=== PATIENT | male | born 1955 | race Caucasian/White ===

== ENCOUNTER 2017-10-16 10:52 | Emergency (ER) | payer MEDICARE ==
[~2017-10-16] VITALS: Ht 175.3 cm; Wt 81.8 kg
[2017-10-16 10:54] VITALS: Ht 175.3 cm; Wt 81.8 kg
[2017-10-16] MEDS ORDERED: LANTUS INSULIN10 ML SC (10:56)
[2017-10-16] MEDS ORDERED: HUMALOG MI100 UNITS/ SC (10:56)
[2017-10-16] MEDS ORDERED: COREG6.25 MG PO (10:57)
[2017-10-16 11:17] LABS: BASOPHILS 0.5 % (0-2); HEMATOCRIT 38.6 % (42.0-54.0); HEMOGLOBIN 13.9 g/dL (13.5-17.5); IMMATURE GRANULOCYTES 0.2 % (0-5); MCH 33.9 pg (26.0-34.0); MCV 94.1 fL (80.0-100.0); MONOCYTES 6.8 % (2-11); NEUTROPHILS 72.5 % (40-80); PLATELET COUNT 174 10x3/uL (130-400); RDW 13.1 % (11.5-14.5); WBC 10.2 10x3/uL (4.8-10.8)
[2017-10-16 11:32] LABS: ALBUMIN 3.6 g/dL (3.4-5.0); ANION GAP 8.7 mmol/L (8-16); BILIRUBIN - TOTAL 0.96 mg/dL (0.2-1.3); CARBON DIOXIDE 31.4 mmol/L (21.0-32.0); CREATININE - SERUM 1.2 mg/dL (0.6-1.3); POTASSIUM - SERUM 4.1 mmol/L (3.5-5.1); PROTEIN - SERUM 8.1 g/dL (6.4-8.2)
[2017-10-16] MEDS ORDERED: BACTRIM DS TABL1 TAB PO (12:21)
[2017-10-16 13:12] VITALS: BP 127/69
[2017-11-07 14:44] VITALS: Ht 175.3 cm; Wt 81.8 kg
== END 2017-10-16 13:12 | disposition home or self-care (01) ==
LOC: D.ER 10:52
PROVIDERS: Family Medicine
DX: E11.621 Type 2 diabetes mellitus with foot ulcer (principal); I10 Essential (primary) hypertension; Z89.511 Acquired absence of right leg below knee; L03.116 Cellulitis of left lower limb

== ENCOUNTER 2017-11-06 09:54 | Inpatient (IN) | payer MEDICARE ==
[~2017-11-06] VITALS: Ht 175.3 cm; Wt 80.1 kg
--- NOTE | ~2017-11-06 | OP ---
PATIENT NAME: FLORENTINO BARRIENTOS MEDICAL RECORD: [id number] :57 LOCATION:D.M2 D.2103 ADMISSION DATE:11/06/17 SURGEON: KEERTHI MEZA MD DATE OF OPERATION: 11/08/2017 PROCEDURES: 1. Stent placement, popliteal, left. 2. CRM TECHNICAL LEAD, popliteal, left. 3. Aortofemoral runoff. 4. Abdominal aortography. INDICATION: Claudication, nonhealing ulcers, limb threatening ischemia, left lower extremity. PROCEDURE IN DETAIL: After informed consent was obtained and after a detailed description of the risks, benefits as well as alternative therapies, the patient elected to proceed with angiogram and angioplasty. The right femoral area was prepped and draped in normal sterile fashion. Right femoral artery was cannulated via modified Seldinger technique with placement of a 6-Azeri ikkypj-wgw-jgcz sheath. All catheters exchanged through this sheath. FINDINGS: The abdominal aortography was performed. The catheter was pulled down for aortofemoral runoff. Abdominal aortography reveals no significant abdominal aortic disease. No dissection or aneurysm formation. RIGHT LEG: A. Iliac: The common internal and external iliacs have mild irregularities, but no flow-limiting stenosis. B. Femoral system: The common superficial and deep femoral have mild irregularities, but no flow-limiting stenosis. C. The patient is status post BKA, hence no infrapopliteal circulation is present. LEFT LEG: A. Iliac: The common internal and external iliacs have mild irregularities but no flow-limiting stenosis. B. Femoral system. The common superficial and deep femoral have lsld-hc-ouyxaqev irregularities, but no flow-limiting stenosis. C. Popliteal and infrapopliteal vessels: The popliteal is totally occluded. There is trickle flow from collaterals. The infrapopliteal vessels are patent. There is 3-vessel runoff to the foot. CRM TECHNICAL LEAD STENT OF THE LEFT LEG: The 100% occlusion of the popliteal was crossed with a Glidewire glide cath combination. Ballooning was undertaken with a 5-0 Balloon, this yielded suboptimal result with continued greater than 70% residual stenosis. Stenting was undertaken with a 5 x 40 SMART stent. Post-stent dilatation made with a 6.0 balloon. Result was 0% residual mosque of brisk distal flow. IMPRESSION: Successful percutaneous transluminal angioplasty stent of the left popliteal going from 100% initial stenosis with 0% residual stenosis with brisk distal flow. TRANSINT:[id number] Voice Confirmation ID: [id number] DOCUMENT ID: [id number] OPERATIVE REPORT [id number] FLORENTINO BARRIENTOS JEFFREY MD at 1752 CC: [id number] DICTATION DATE: 11/08/17 1117 EXPORT COORDINATOR: 11/08/17 1334 ADM IN [place] [id number] [place] [id number]
--- NOTE | ~2017-11-06 | HEMODYNAMI ---
PATIENT:LENCHO BARRIENTOS MEDICAL RECORD: [id number] : 57 LOCATION:D.CA D.2220 ADMISSION DATE: 11/06/17 Generatedon:11/08/201711:19 Patient name: LENCHO BARRIENTOS Patient #: [id number] SSN: : 1955 Date of study: 11/08/2017 Page: Of Hemodynamic Procedure Report Patient Data Patient Demographics Procedure consent was obtained First Name: LENCHO Gender: Male Last Name: ILIANA : 1955 Patient #: [id number] Age: 62 year(s) Race: Unknown Additional ID: [id number] Contact details Address: [address] [place] [address] State: [place] City: [facility] Zip code: [address] Past Medical History Allergies Allergen Reaction Date Comments Reported Penicillins 11/08/2017 Admission Admission Data Admission Date: 11/06/2017 Admission Time: 12:19 Admit Source: Other Room #: D.2220 Lab Results Lab Result Date: 11/08/2017 Lab Result Time: 0:00 Biochemistry Name Units Result Min Max BUN mg/dl 16 --(---*)-- 7 18 Creatinine mg/dl 1.1 --(--*-)-- 0.6 1.3 CBC Name Units Result Min Max Hemoglobin g/dl 11.3 *-(----)-- 13.5 17.5 Procedure Procedure Types Cath Procedure Peripheral Cath Diagnostic Procedure Cath Peripheral Nrhic-Zrmsbnu-Xpg-Off Peripheral vascular Intervention Stent Stent-Fem/Popw/plasty Procedure Description Procedure Date Procedure Date: 11/08/2017 Procedure Start Time: 10:49 Procedure End Time: 11:16 Procedure Staff Name Function Evangelist Vrea MD Performing Physician Demetra Han RT Monitor Chase Casillas RT Scrub Lencho Kovacs RN Nurse Procedure Data Cath Procedure Fluoroscopy Diagnostic fluoroscopy Total fluoroscopy Time: 6.8 time: 6.8 min min Diagnostic fluoroscopy Total fluoroscopy dose: 172 dose: 172 mGy mGy Contrast Material Contrast Material Type Amount (ml) Isovue 300 104 Entry Location Entry Primary Successful Side Size Upsize Upsize Entry Closure Succes sful Closure Location (Fr) 1 (Fr) 2 (Fr) Remarks Device Remarks Femoral Right 6 Fr 6 Fr Exoseal artery Short Long Estimated blood loss: 10 ml Diagnostic catheters Device Type Used For End Catheter Placement DIAGNOSTIC UF 5Fr Abdominal catheter ([id number]) aortogram with runoff Procedure Complications No complications Procedure Medications Medication Administration Route Dosage 0.9% NaCl I.V. 100 ml/hr Oxygen etCO2 Nasal cannula 2 l/min Heparin Flush Bag added to field 2 bags (1000units/500ml NS) Lidocaine 2% added to field 20 Versed I.V. 0.5 mg Fentanyl I.V. 25 mcg Versed I.V. 0.5 mg Fentanyl I.V. 25 mcg Heparin Bolus I.V. 4000 units Fentanyl I.V. 50 mcg Plavix P.O. 75 mg Hemodynamics Rest HGB: 11.3 (g/dl) Heart Rate: 87 (bpm) Snapshots Pre Cath Intra NCS Post Cath Vital Signs Time Heart Resp SPO2 etCO2 NIBP (mmHg) Rhythm Pain Sedation Rate (ipm) (%) (mmHg) Status Level (bpm) 10:25:22 83 10 91 29.2 141/80(119) NSR 0 (11) 10(A) , No pain 10:30:05 83 13 95 30.8 141/79(115) NSR 0 (11) 10(A) , No pain 10:34:49 82 14 98 36 141/79(119) NSR 0 (11) 10(A) , No pain 10:39:32 83 18 99 30 137/83(118) NSR 0 (11) 10(A) , No pain 10:44:17 82 12 100 30.7 129/76(102) NSR 0 (11) 10(A) , No pain 10:48:57 83 14 99 28.5 131/78(108) NSR 0 (11) 9(A) , No pain 10:53:40 86 14 99 29.2 140/80(118) NSR 0 (11) 9(A) , No pain 10:58:27 83 11 96 29.2 143/76(122) NSR 0 (11) 10(A) , No pain 11:03:05 87 13 97 33 132/82(109) NSR 0 (11) 10(A) , No pain 11:07:48 87 14 98 29.2 139/82(117) NSR 0 (11) 10(A) , No pain 11:12:30 86 11 98 38.2 155/85(131) NSR 0 (11) 10(A) , No pain Medications Time Medication Route Dose Verified Delivered Reason Notes Effectiveness by by 10:25:34 0.9% NaCl I.V. 100 Lencho Lencho Per physician ml/hr Bethanie Kovacs RN RN 10:25:45 Oxygen etCO2 2 Lencho Lencho Per physician Nasal l/min Bethanie Kovacs cannula RN RN 10:25:59 Heparin Flush added 2 Lencho Lencho used for Bag to bags Bethanie Kovacs procedure (1000units/500ml field RN RN NS) 10:26:21 Lidocaine 2% added 20ml Lencho Lencho for local to vial Lorveronica Kovacs anesthetic field RN RN 10:48:16 Versed I.V. 0.5 Lencho Lencho for sedation mg Bethanie Kovacs RN RN 10:48:26 Fentanyl I.V. 25 Lencho Lencho for sedation mcg Bethanie Kovacs RN RN 10:50:41 Versed I.V. 0.5 Lencho Lencho for sedation mg Bethanie Kovacs RN RN 10:50:47 Fentanyl I.V. 25 Lencho Lencho for sedation mcg Bethanie Kovacs RN RN 10:57:31 Heparin Bolus I.V. 4000 Lencho Lencho for units Bethanei Kovacs anticoagulation RN RN 11:13:22 Fentanyl I.V. 50 Lencho Lencho for sedation mcg Bethanie Kovacs RN RN 11:15:49 Plavix P.O. 75 mg Lencho Lencho for Lorveronica Kovacs antiplatelet RN RN therapy Procedure Log Time Note 9:52:30 Informed consent obtained and on chart 9:52:33 Admit Source: Other 9:52:47 Diagnostic Cath status Elective 9:52:48 Time tracking: Regular hours (M-F 7:00 - 5:00) 9:53:18 Plan of Care:Hemodynamics will remain stable., Cardiac rhythm will remain stable., Comfort level will be maintained., Respiratory function will remain adequate., Patient/ family verbilizes understanding of procedure., Procedure tolerated without complication., Recovers from procedure without complications.. 9:55:35 Lencho Kovacs RN sent for patient. Start room use. 10:02:31 H&P Date Dictated: 11/07/2017 Within 30 days and on chart.. 10:02:40 Patient allergic to Penicillins 10:03:02 Lab Result : BUN 16 mg/dl 10:03:02 Lab Result : Creatinine 1.1 mg/dl 10:03:02 Lab Result : Hemoglobin 11.3 g/dl 10:10:27 Patient received from PCU to CCL 1 Alert and oriented. Tansferred to table in Supine position. 10:10:28 Warm blankets applied, and tulio hugger turned on for patient comfort. 10:10:29 Correct patient and procedure confirmed by team. 10:10:30 ECG and BP/O2 sat monitors applied to patient. 10:23:51 Vital chart was started 10:23:52 Baseline sample Acquired. 10:23:56 Rhythm: sinus rhythm 10:23:57 Full Disclosure recording started 10:23:58 Pre-procedure instructions explained to patient. 10:23:59 Pre-op teaching completed and patient verbalized understanding. 10:24:07 Family in patients room. 10:24:10 Is the patient allergic to Iodine/contrast media? No. 10:24:13 Is patient on blood thinner?No 10:24:15 Patient diabetic? Yes. 10:24:17 If diabetic: On Metformin? No 10:24:20 Previous problem with sedation/anesthesia? No ? 10:24:21 Snore? Yes 10:24:22 Sleep apnea? Yes 10:24:22 Deviated septum? No 10:24:24 Opens mouth fully? Yes 10:24:25 Sticks out tongue? Yes 10:24:26 Airway obstruction? No ? 10:24:28 Dentures? No ? 10:25:34 0.9% NaCl 100 ml/hr I.V. was administered by Lencho Kovacs RN; Per physician; 10:25:45 Oxygen 2 l/min etCO2 Nasal cannula was administered by Lencho Kovacs RN; Per physician; 10:25:59 Heparin Flush Bag (1000units/500ml NS) 2 bags added to field was administered by Lencho Kovacs RN; used for procedure; 10:26:21 Lidocaine 2% 20ml vial added to field was administered by Lencho Kovacs RN; for local anesthetic; 10:29:47 IV patent on arrival in left forearm with 0.9% NaCl at [facility]. 10:29:52 Lab results completed and on chart. 10:30:01 Right groin area was prepped with chlora-prep and draped in sterile fashion 10:30:03 Alarms reviewed by R. N. 10:30:03 Sharps counted by scrub and verified by R.N. 10:40:50 Use device set CATH PACK 10:40:51 ACIST Syringe (47439) opened to sterile field. 10:40:52 ACIST Hand Control (78732) opened to sterile field. 10:40:52 ACIST Manifold (36103) opened to sterile field. 10:40:53 Medline Cath Pack ([id number]) opened to sterile field. 10:40:53 Bag Decanter (2002S) opened to sterile field. 10:40:53 DIAGNOSTIC WIRE .035 260cm J wire (398994) opened to sterile field. 10:41:01 SHEATH 6FR Parish (KFB127) opened to sterile field. 10:41:18 --------ALL STOP TIME OUT------ 10:41:19 Final Timeout: patient, procedure, and site verified with staff and physician. All members of the team are in agreement. 10:41:21 Bilateral groins site verified by team. 10:41:24 Physical assessment completed. ASA score P 2 - A patient with mild systemic disease as per Evangelist Vera MD. 10:41:27 Sedation plan: IV Moderate Sedation Medication:Versed, Fentanyl 10:42:05 Zero performed for pressure channel P1 10:48:16 Versed 0.5 mg I.V. was administered by Lencho Kovacs RN; for sedation; 10:48:26 Fentanyl 25 mcg I.V. was administered by Lencho Kovacs RN; for sedation; 10:49:34 Procedure started. 10:49:40 Local anesthetic to right femoral artery with Lidocaine 2% by Evangelist Vera MD.INITIAL ACCESS ONLY 10:50:28 A 6 Fr Short sheath was inserted into the Right Femoral artery 10:50:41 Versed 0.5 mg I.V. was administered by Lencho Kovacs RN; for sedation; 10:50:44 A DIAGNOSTIC UF 5Fr catheter ([id number]) was advanced over the wire and used for Abdominal aortogram with runoff. 10:50:47 Fentanyl 25 mcg I.V. was administered by Lencho Kovacs RN; for sedation; 10:51:54 Abdominal angiogram w/ runoff was performed. 10:51:58 Right leg runoff performed. 10:52:40 Left leg runoff performed. 10:52:51 SHEATH 6FR Destination (RSR01) opened to sterile field. 10:53:04 INFLATOR Merit BasixCompak (TY2126) opened to sterile field. 10:53:20 GLIDE WIRE Super Stiff Angled 260cm (MZ1609) opened to sterile field. 10:54:51 long glide wire advanced around the horn 10:54:53 Catheter exchanged over wire. 10:55:09 Sheath upsized to a 6 Fr Long. 10:55:36 LONG SHEATH ADVANCED AROUND HORN 10:55:45 GLIDE WIRE REMOVED 10:57:31 Heparin Bolus 4000 units I.V. was administered by Lencho Kovacs RN; for anticoagulation; 10:57:43 GLIDE CATHETER 5FR STRAIGHT 100cm (CG506) opened to sterile field. 10:58:30 GLIDE CATH STRAIGHT ADVANCED WITH GLIDE WIRE 10:58:36 GLIDE WIRE REMOVED 10:58:51 CHOICE PT Extra Support J 300cm guide wire ([id number]) opened to sterile field. 10:59:01 CHOICE ES wire advanced. 10:59:07 Wire advanced across lesion. 11:00:06 STRAIGHT CATH REMOVED 11:01:47 Inflate balloon Inflation number: 1 A SABER 5.0 x 6 x 150 balloon ([id number]) was prepped and advanced across the Proximal Popliteal, Left, then inflated to 7 NATALY for 0:11 (min:sec). 11:02:05 Inflation number: 2 The SABER 5.0 x 6 x 150 balloon ([id number]) was reinflated across the Proximal Popliteal, Left, to 7 NATALY for 0:10 (min:sec). 11:02:23 Balloon removed over the wire. 11:04:43 SMART Flex 5 X 40 X 120 stent ([id number]) was deployed across Proximal Popliteal, Left . 11:04:47 Stent catheter was removed intact over wire. 11:06:09 Inflation number: 3 The SABER 5.0 x 6 x 150 balloon ([id number]) was reinflated across the Proximal Popliteal, Left, to 15 NATALY for 0:00 (min:sec). 11:06:35 Balloon removed over the wire. 11:09:15 Inflate balloon Inflation number: 4 A POWERFLEX PRO 6.0 X 20 X 135 balloon ([id number]) was prepped and advanced across the Proximal Popliteal, Left, then inflated to 17 NATALY for 0:00 (min:sec). 11:09:39 Balloon removed over the wire. 11:09:43 Wire removed. 11:09:59 LONG SHEATH EXCHANGED FOR SHORT SHEATH 11:10:07 EXOSEAL 6Fr (EX600) opened to sterile field. 11:12:09 Sheath removed intact; hemostasis achieved with Exoseal to the Right Femoral artery. 11:12:11 Procedure ended.(Physican Out) 11:13:22 Fentanyl 50 mcg I.V. was administered by Lencho Kovacs RN; for sedation; 11:14:04 Fluoroscopy time 06.80 minutes. 11:14:09 Fluoroscopy dose: 172 mGy 11:14:09 Flurop Dose total: 172 11:14:13 Contrast amount:Isovue 300 104ml. 11:14:15 Sharps counted by scrub and verified by R.N. 11:14:19 Post-op/insertion site Right Femoral artery dressed using a 4 x 4 and Tegaderm. 11:14:23 Post right femoral artery:stable, soft, clean and dry 11:14:29 Post-procedure physical assessment completed. ASA score P 2 - A patient with mild systemic disease as per Evangelist Vera MD. 11:14:31 Post procedure rhythm: sinus rhythm 11:14:34 Estimated blood loss: 10 ml 11:14:35 Post procedure instruction explained to patient.Patient verbalizes understanding. 11:14:36 Patient needs reinforcement of post procedure teaching. 11:15:24 Procedure type changed to Cath procedure, Peripheral Cath Diagnostic Procedure, Cath Peripheral, Myjdf-Mykqyss-Lnw-Off, Peripheral vascular Intervention, Stent, Stent-Fem/Popw/plasty 11:15:49 Plavix 75 mg P.O. was administered by Lencho Kovacs RN; for antiplatelet therapy; 11:16:06 Procedure and supply charges have been captured, reviewed, submitted and are correct. 11:16:09 Procedure Complication : No complications 11:16:11 Vital chart was stopped 11:16:12 See physician's report for complete and final results. 11:16:13 Report given to [facility]. 11:16:16 Patient transfered to [facility] with Bed. 11:16:18 Procedure ended. 11:16:18 Full Disclosure recording stopped 11:16:21 End room use (Document Last) Intervention Summary Intervention Notes Time ActionType Lesion and Equipment Action# Pressure Duration Attributes Used 11:01:47 Inflate Proximal SABER 5.0 x 1 7 00:11 balloon Popliteal, 6 x 150 Left balloon ([id number]) 11:02:05 Reinflate Proximal SABER 5.0 x 2 7 00:10 balloon Popliteal, 6 x 150 Left balloon ([id number]) 11:04:43 Deploy self Proximal SMART Flex 1 expanding Popliteal, 5 X 40 X stent Left 120 stent ([id number]) 11:06:09 Reinflate Proximal SABER 5.0 x 3 15 00:00 balloon Popliteal, 6 x 150 Left balloon ([id number]) 11:09:15 Inflate Proximal POWERFLEX 4 17 00:00 balloon Popliteal, PRO 6.0 X Left 20 X 135 balloon ([id number]) Device Usage Item Name Manufacture Quantity Catalog Number Hospital Part Current [facility] al Lot# / Charge Number Stock Stock Serial# Code ACIST Acist 1 35432 850231 272507 141758 20 Syringe Medical (48631) Systems Inc ACIST Hand Acist 1 77476 284221 548418 554736 5 Control Medical (02106) Systems Inc ACIST Acist 1 07177 863364 396191 050249 5 Manifold Medical (01405) Systems Inc Medline Cardinal 1 [id number] 837381 68635 778487 5 Cath Pack Health ([id number]) Bag Microtek 1 449718 07769 809795 5 Decanter Medical Inc. () DIAGNOSTIC [facility] [place] 1 047065 408931 084339 984824 30 WIRE .035 260cm J wire (417559) SHEATH 6FR Terumo 1 RJB349 082830 828684 226655 40 Parish (NEF622) DIAGNOSTIC Cardinal 1 [id number] 375248 232558 426974 10 UF 5Fr Health catheter ([id number]) SHEATH 6FR Terumo 1 RSR01 799138 81270 292961 5 Destination (RSR01) INFLATOR Merit 1 JC1803 086891 877530 493573 15 [facility] Medical BasixCompak (ST3579) GLIDE WIRE Terumo 1 ZM5990 971017 856571 159423 5 Super Stiff Angled 260cm (AS4008) GLIDE Terumo 1 CG506 890441 19777 350796 4 CATHETER 5FR STRAIGHT 100cm (CG506) CHOICE PT [place] 1 [id number] 743042 804929 944080 5 Extra Scientific Support J 300cm guide wire ([id number]) SABER 5.0 x Cardinal 1 [id number] 284775 704876 757431 5 6 x 150 Health balloon ([id number]) SMART Flex Cardinal 1 [id number] 992827 723959 0 5 X 40 X Health 120 stent ([id number]) POWERFLEX Cardinal 1 [id number] 345145 547389 798034 5 PRO 6.0 X Health 20 X 135 balloon ([id number]) EXOSEAL 6Fr Cardinal 1 EX600 135190 435975 253289 10 (EX600) Health Signature Audit [place] Stage Time Signature Unsigned Intra-Procedure 11/08/2017 Demetra Han 11:19:31 AM RT(R) Signatures Monitor : Demetra Han Signature : RT Date : Time : [place] [id number] [place] [address]
--- NOTE | ~2017-11-06 | CN ---
PATIENT NAME:FLORENTINO BARRIENTOS MEDICAL RECORD: [id number] : 57 LOCATION:D. D.2103 ADMIT DATE: 11/06/17 ACCOUNT: [id number] CONSULTING PHYSICIAN: KEERTHI MEZA MD REFERRING PHYSICIAN: YENNY QUINONES MD DATE OF CONSULTATION: 11/07/2017 CARDIOVASCULAR CONSULT DIAGNOSES: 1. Limb-threatening ischemia, left lower extremity. 2. Peripheral vascular disease. 3. Status post BKA, right lower extremity. HISTORY: This is a gentleman who presents with nonhealing ulcers on his left lower extremity. This is the only lower extremity he has. He is status post BKA of the right lower extremity. He has had multiple episodes of debridement of the ulcers in this extremity, but he has not had revascularization procedures on this. PHYSICAL EXAMINATION: GENERAL APPEARANCE: Well-nourished, well-developed, appears stated age. Level of distress, comfortable. PSYCHIATRIC: Mental status, alert, normal affect. Orientation, oriented to time, place and person. EYES: Lids and conjunctiva, noninjected. No discharge, no pallor. ENT: Lips, teeth, gums, normal dentition. Oropharynx, no cyanosis, no pallor. NECK: Carotid arteries, bilateral normal upstroke, no bruits, no thrills. JUGULAR VEINS: No jugular venous pressure or distention. CERVICAL LYMPH NODES: Nontender, nonenlarged. THYROID: Not enlarged. Nontender. No nodules. LUNGS: Respiratory effort, unlabored. CHEST: Normal curvature. No thoracic deformity. No chest wall tenderness. Percussion, resonant. Auscultation, clear. No wheezes, no rales, no rhonchi. CARDIOVASCULAR: Precordial exam, nondisplaced. No heaves or pericardial thrills. Rate and rhythm, regular. Heart sounds, normal S1, normal S2. No S3, no gallop, no rub. Systolic murmur, not heard. Diastolic murmur, not heard. EXTREMITIES: No cyanosis, no edema. Peripheral pulses, full and equal in all extremities, except as noted. No bruits appreciated. ABDOMEN: Soft, nondistended. Normal aorta. No bruit. Nontender. No masses. Liver, nontender, no hepatomegaly. Spleen, nontender, no splenomegaly. MUSCULOSKELETAL: No joint tenderness. No joint swelling. No erythema. NEUROLOGICAL: Normal gait, normal strength, normal tone. SKIN: Warm and dry. OVERALL IMPRESSION: Limb-threatening ischemia, left lower extremity. We will proceed with aortofemoral runoff in hopes of transcatheter revascularization. Further care depends upon findings of the runoff. TRANSINT:[id number] Voice Confirmation ID: [id number] DOCUMENT ID: [id number] CONSULT REPORT [id number] FLORENTINO BARRIENTOS, KEERTHI HULL at 1752 CC: [id number] DICTATION DATE: 11/07/17 1552 DIRECTOR OF PUBLIC HEALTH: 11/07/17 1605 ADM IN [facility] [address] [place] [id number]
--- NOTE | ~2017-11-06 | EC ---
PATIENT:FLORENTINO BARRIENTOS DATE OF SERVICE: 11/06/17 SEX: M MEDICAL RECORD: [id number] DATE OF : 57 LOCATION:D.M2 D.210 AGE OF PATIENT: 62 ADMISSION DATE: 11/06/17 REFERRING PHYSICIAN: INTERPRETING PHYSICIAN: KEERTHI MEZA MD ECHOCARDIOGRAM REPORT ECHO CHARGES 4 ECHO COMPLETE Date: 11/06 CLINICAL DIAGNOSIS: EVALUATION OF HEART ECHOCARDIOGRAPHIC MEASUREMENTS (adult normal given) AC root (d.<3.7cm) 3.2 cm LV Septum d (<1.2 cm> 1.9 cm Valve Excursion 1.5 cm LV Septum (systole) 2.0 cm Left Atria (s.<4.0cm> 4.0 cm LVPW d(<1.2cm) 0.7 cm RV (d.<2.3cm) 3.8 cm LVPW (sytole) 1.1 cm LV diastole(<5.6CM) 4.9 cm MV E-F(>70mm/sec) cm LV systole 3.8 cm LVOT Diameter 2.0 cm MV exc.(>10mm) cm Est.ejection fraction (50-75%) % DOPPLER: LVIT cm/sec A 87 cm/sec E 53 cm/sec LA cm/sec RVSP 17.7 mmHg LVOT 91 cm/sec AOP1/2T m/s Asc. Ao 166 cm/sec RVOT 89 cm/sec RA cm/sec PA 97 cm/sec AV Gradient Peak 11.1 mmHg AV Mean 1.1 mmHg AV Area 1.8 cm MV Gradient Peak 4.8 mmHg MV Mean 1.9 mmHg MV Area cm COMMENTS: Loader Helper Sorting Yard: [place] BUCIO Terminologist: Margarita Zhao TAPE# PACS Pericardial Effusion N DATE OF SERVICE: 11/06/2017 FINDINGS: 1. Left ventricular chamber size is within normal limits. Left ventricular systolic function is normal. Overall ejection fraction estimated at 60%. 2. Left atrium is upper limits of normal at 4.0 cm. Right atrium and right ventricle chamber sizes are mildly dilated. 3. Valvular structures have normal structure and motion. 4. Doppler interrogation only reveals bgsga-cw-xvsh aortic insufficiency. No other valvular insufficiency or stenosis. Pulmonary systolic pressure is ECHOCARDIOGRAM REPORT [id number] FLORENTINO BARRIENTOS normal, estimated at 17 mmHg. 5. No evidence of pericardial effusion or left ventricular thrombus. TRANSINT:[id number] Voice Confirmation ID: [id number] DOCUMENT ID: [id number] KEERTHI MEZA MD at 1752 CC: [id number] DICTATION DATE: 11/06/17 1617 BALLET PROFESSOR: 11/06/17 1716 ADM IN [facility] [address] [place] [id number]
[~2017-11-06 09:54] MED LIST: BACTRIM DS TABL1 TAB PO; COREG6.25 MG PO; HUMALOG MI100 UNITS/ SC; LANTUS INSULIN10 ML SC
[2017-11-06 10:39] LABS: BASOPHILS 0.4 % (0-2); EOSINOPHILS 0.6 % (0-7); HEMATOCRIT 35.1 % (42.0-54.0); IMMATURE GRANULOCYTES 0.2 % (0-5); LYMPHOCYTES 14.2 % (15-50); MCH 43.6 pg (26.0-34.0); MCHC 45.9 g/dL (31.0-37.0); MCV 95.1 fL (80.0-100.0); MEAN PLATELET VOLUME 9.9 fL (7.4-10.4); MONOCYTES 7.3 % (2-11); NEUTROPHILS 77.3 % (40-80); RBC 3.69 10x6/uL (4.20-6.10); RDW 12.7 % (11.5-14.5); WBC 14.1 10x3/uL (4.8-10.8)
[2017-11-06 10:53] LABS: ALBUMIN 2.9 g/dL (3.4-5.0); ANION GAP 12.3 mmol/L (8-16); BILIRUBIN - TOTAL 0.53 mg/dL (0.2-1.3); CALCIUM 8.9 mg/dL (8.5-10.1); CARBON DIOXIDE 26.6 mmol/L (21.0-32.0); CREATININE - SERUM 1.2 mg/dL (0.6-1.3); POTASSIUM - SERUM 3.9 mmol/L (3.5-5.1); PROTEIN - SERUM 8.4 g/dL (6.4-8.2)
[2017-11-06 11:21] LABS: PLATELET COUNT 260 10x3/uL (130-400)
[2017-11-06 11:25] LABS: HEMOGLOBIN 12.1 g/dL (13.5-17.5)
[2017-11-06 18:50] VITALS: BP 126/74
[2017-11-06 21:25] VITALS: BP 135/77
[2017-11-06] MEDS ORDERED: FLOMAX0.4 MG PO (22:30)
[2017-11-06] MEDS ORDERED: COZAAR50 MG PO (22:30)
[2017-11-06 22:46] VITALS: BP 138/71; BMI 26.6
[2017-11-07 06:59] VITALS: BP 133/73
[2017-11-07 07:19] LABS: BASOPHILS 0.2 % (0-2); HEMATOCRIT 32.6 % (42.0-54.0); HEMOGLOBIN 11.2 g/dL (13.5-17.5); IMMATURE GRANULOCYTES 0.2 % (0-5); LYMPHOCYTES 13.4 % (15-50); MCH 32.7 pg (26.0-34.0); MCHC 34.4 g/dL (31.0-37.0); MCV 95.3 fL (80.0-100.0); MEAN PLATELET VOLUME 9.8 fL (7.4-10.4); MONOCYTES 8.6 % (2-11); NEUTROPHILS 76.6 % (40-80); PLATELET COUNT 249 10x3/uL (130-400); RBC 3.42 10x6/uL (4.20-6.10); RDW 12.9 % (11.5-14.5); WBC 12.4 10x3/uL (4.8-10.8)
[2017-11-07 07:26] LABS: CALCIUM 8.3 mg/dL (8.5-10.1); CARBON DIOXIDE 26.7 mmol/L (21.0-32.0); CREATININE - SERUM 1.3 mg/dL (0.6-1.3); POTASSIUM - SERUM 3.7 mmol/L (3.5-5.1)
[2017-11-07 09:24] VITALS: BP 151/72
[2017-11-07 12:27] VITALS: BP 147/74
[2017-11-07 14:44] VITALS: Ht 175.3 cm; Wt 80.1 kg
[2017-11-07 16:58] VITALS: BP 154/75
[2017-11-07 21:36] VITALS: BP 167/81
[2017-11-08 06:10] LABS: BASOPHILS 0.3 % (0-2); EOSINOPHILS 1.2 % (0-7); HEMOGLOBIN 11.3 g/dL (13.5-17.5); IMMATURE GRANULOCYTES 0.3 % (0-5); LYMPHOCYTES 13.7 % (15-50); MCH 32.6 pg (26.0-34.0); MCHC 34.2 g/dL (31.0-37.0); MCV 95.1 fL (80.0-100.0); MEAN PLATELET VOLUME 9.6 fL (7.4-10.4); MONOCYTES 7.5 % (2-11); PLATELET COUNT 263 10x3/uL (130-400); RBC 3.47 10x6/uL (4.20-6.10); RDW 12.9 % (11.5-14.5); WBC 11.8 10x3/uL (4.8-10.8)
[2017-11-08 06:29] LABS: ANION GAP 12.1 mmol/L (8-16); CALCIUM 8.2 mg/dL (8.5-10.1); CREATININE - SERUM 1.1 mg/dL (0.6-1.3); POTASSIUM - SERUM 4.1 mmol/L (3.5-5.1)
[2017-11-08 09:42] VITALS: BP 147/82
[2017-11-08 20:39] VITALS: BP 134/74
[2017-11-09] VITALS: BP 147/75
[2017-11-09 04:00] VITALS: BP 146/60
[2017-11-09 05:38] LABS: BASOPHILS 0.2 % (0-2); HEMATOCRIT 34.1 % (42.0-54.0); HEMOGLOBIN 11.6 g/dL (13.5-17.5); IMMATURE GRANULOCYTES 0.2 % (0-5); LYMPHOCYTES 15.6 % (15-50); MCH 32.2 pg (26.0-34.0); MCV 94.7 fL (80.0-100.0); MEAN PLATELET VOLUME 9.8 fL (7.4-10.4); MONOCYTES 8.2 % (2-11); NEUTROPHILS 74.8 % (40-80); PLATELET COUNT 276 10x3/uL (130-400); RDW 12.7 % (11.5-14.5); WBC 12.1 10x3/uL (4.8-10.8)
[2017-11-09 06:04] LABS: CALC OSMOLALITY 286 mosm/kg (275-300); CALCIUM 8.2 mg/dL (8.5-10.1); CARBON DIOXIDE 25.3 mmol/L (21.0-32.0); CHLORIDE - SERUM 104 mmol/L (98-107); GLUCOSE 235 mg/dL (74-106); POTASSIUM - SERUM 3.7 mmol/L (3.5-5.1); SODIUM 139 mmol/L (136-145); UREA NITROGEN 14 mg/dL (7-18); eGFR NON AFRICAN AMERICAN 81 mL/min (90-120)
[2017-11-09 12:33] VITALS: BP 156/77
[2017-11-09] MEDS ORDERED: KEFLEX500 MG PO (15:43)
== END 2017-11-09 17:13 | disposition home or self-care (01) | DRG 253 ==
LOC: D.ER 09:54 → D.MS 12:19 → D.EDHOLD 12:19 → D.MS 21:14 → D.M2 11-08 11:31
PROVIDERS: Family Medicine; Internal Medicine Interventional Cardiology; Internal Medicine Nephrology
PROC: 047N3DZ Dilation of Left Popliteal Artery with Intraluminal Device, Percutaneous Approach (ICD-10-PCS; principal; 2017-11-08 12:00)
DX: E10.51 Type 1 diabetes mellitus with diabetic peripheral angiopathy without gangrene (principal); L97.421 Non-pressure chronic ulcer of left heel and midfoot limited to breakdown of skin; I70.92 Chronic total occlusion of artery of the extremities; E11.621 Type 2 diabetes mellitus with foot ulcer; I70.244 Atherosclerosis of native arteries of left leg with ulceration of heel and midfoot; I10 Essential (primary) hypertension; I25.10 Atherosclerotic heart disease of native coronary artery without angina pectoris; Q85.00 Neurofibromatosis, unspecified

== ENCOUNTER 2018-02-19 14:28 | Inpatient (IN) | payer MEDICARE ==
[~2018-02-19] VITALS: Ht 175.3 cm; Wt 79.1 kg
--- NOTE | ~2018-02-19 | OP ---
PATIENT NAME: FLORENTINO BARRIENTOS MEDICAL RECORD: [id number] :57 LOCATION:D.M2 D.2139 ADMISSION DATE:02/19/18 SURGEON: KEERTHI MEZA MD DATE OF OPERATION: 02/21/2018 PROCEDURES: 1. PTCA stent left circumflex. 2. Left heart catheterization. 3. Selective coronary angiography. 4. Left ventriculogram. INDICATION: Angina and coronary artery disease. PROCEDURE IN DETAIL: After informed consent was obtained and after a detailed description of risks, benefits as well as alternative therapies, the patient elected to proceed with angiogram and angioplasty. The right femoral area was prepped and draped in normal sterile fashion. The right femoral artery was cannulated via modified Seldinger technique with placement of 6-Montenegrin sheath. All catheters exchanged through this sheath. FINDINGS: The left ventriculogram was performed in standard 30-degree GRIMES view, reveals good cardiac wall motion throughout all segments. Overall ejection fraction estimated at 50%. SELECTIVE CORONARY ANGIOGRAPHY: 1. Left main showed no significant angiographic disease. 2. Left anterior descending has previously placed stents, these are widely patent with no significant restenosis. No disease elsewise throughout the LAD or its branches. 3. The left circumflex has 90% stenosis in the mid vessel. 4. Right coronary is small, nondominant with no significant disease. LONG WALL SHEAR OPERATOR STENT OF THE LEFT CIRCUMFLEX: The stent used 3.0 x 18 mm Integrity. Result was 0% residual stenosis. OVERALL IMPRESSION: Successful PTCA stent of the left circumflex going from 90% initial stenosis to 0% residual. TRANSINT:[id number] Voice Confirmation ID: [id number] DOCUMENT ID: [id number] KEERTHI MEZA MD at 1718 CC: [id number] DICTATION DATE: 02/21/18 1251 HOME HEALTH ATTENDANT: 02/21/18 1411 ADM IN [place] [id number] [place] [address]
--- NOTE | ~2018-02-19 | CN ---
PATIENT NAME:FLORENTINO BARRIENTOS MEDICAL RECORD: [id number] : 57 LOCATION:D. D.2139 ADMIT DATE: 02/19/18 ACCOUNT: [id number] CONSULTING PHYSICIAN: KEERTHI MEZA MD REFERRING PHYSICIAN: FLORENTINO GAY DPM DATE OF CONSULTATION: 02/20/2018 DIAGNOSES: 1. Angina. 2. Coronary artery disease. 3. Previous cardiac PTCA and stent. 4. TIA symptomatology. 5. Diabetic foot ulcer. 6. Diabetes. 7. Peripheral vascular disease. 8. Hypertension. 9. GERD. HISTORY: This is a gentleman admitted with diabetic foot ulcer. He has had episodes where he will have chest pain and diaphoresis. He had 2 of those overnight. His EKG is abnormal and suggests anterior ischemia. He does have a cardiac history. Last cardiac stent had been in 2008. He as well has episodes where he will feel locked in as if he has an expressive aphasia, and sometimes with these episodes, he has pseudoparalysis where he cannot move. These episodes last anywhere from 10-15 minutes. He has been having these in an increasing frequency. He has not had a carotid evaluation that I can see in the recent past. PHYSICAL EXAMINATION: GENERAL APPEARANCE: Well-nourished, well-developed, appears stated age. Level of distress, comfortable. PSYCHIATRIC: Mental status, alert, normal affect. Orientation, oriented to time, place and person. EYES: Lids and conjunctiva, noninjected. No discharge, no pallor. ENT: Lips, teeth, gums, normal dentition. Oropharynx, no cyanosis, no pallor. NECK: Carotid arteries, bilateral normal upstroke, no bruits, no thrills. JUGULAR VEINS: No jugular venous pressure or distention. CERVICAL LYMPH NODES: Nontender, nonenlarged. THYROID: Not enlarged. Nontender. No nodules. LUNGS: Respiratory effort, unlabored. CHEST: Normal curvature. No thoracic deformity. No chest wall tenderness. Percussion, resonant. Auscultation, clear. No wheezes, no rales, no rhonchi. CARDIOVASCULAR: Precordial exam, nondisplaced. No heaves or pericardial thrills. Rate and rhythm, regular. Heart sounds, normal S1, normal S2. No S3, no gallop, no rub. Systolic murmur, not heard. Diastolic murmur, not heard. EXTREMITIES: No cyanosis, no edema. Peripheral pulses, full and equal in all extremities, except as noted. No bruits appreciated. ABDOMEN: Soft, nondistended. Normal aorta. No bruit. Nontender. No masses. Liver, nontender, no hepatomegaly. Spleen, nontender, no splenomegaly. MUSCULOSKELETAL: No joint tenderness. No joint swelling. No erythema. NEUROLOGICAL: Normal gait, normal strength, normal tone. SKIN: Warm and dry. OVERALL IMPRESSION: Anginal symptomatology with abnormal ECG in a patient with diabetes and cardiac history. Nine years ago, had a cardiac stent. Most CONSULT REPORT [id number] FLORENTINO BARRIENTOS likely, he has recurrent hemodynamically significant coronary artery disease. We will proceed with coronary angiography, and due to his TIA symptomatology, we will do 4-vessel carotid vertebral angiography at the same time. TRANSINT:[id number] Voice Confirmation ID: [id number] DOCUMENT ID: [id number] KEERTHI MEZA MD at 1025 CC: [id number] DICTATION DATE: 02/20/18 1200 TYPEWRITER ASSEMBLER: 02/20/18 1227 DIS IN 02/26/18 [facility] [address] [place] [address]
--- NOTE | ~2018-02-19 | MORECARE ---
CASE MANAGEMENT DISCHARGE SUMMARY PATIENT: FLORENTINO BARRIENTOS UNIT: [id number] ADM DATE: 02/19/18 AGE: 62 : 57 SEX: M ROOM/BED: D.2139 AUTHOR: SURI EDGE PHYSICIAN: REFERRING PHYSICIAN: FLORENTINO GAY DPM DATE OF SERVICE: 02/27/18 Discharge Plan Patient Name: FLORENTINO BARRIENTOS Facility: [facility]:[place] : 1955 Planned Disposition: Home Anticipated Discharge Date: 02/26/18 Discharge Date: 02/26/2018 Expected LOS: 7 Initial Reviewer: [email or web address] Initial Review Date: 02/27/2018 Generated: 02/27/18 10:24 am Patient Name: FLORENTINO BARRIENTOS Page [id number] at 0924 All edits/amendments must be made on the electronic document DICTATION DATE: 02/27/18922 SUPERVISORY IT SPECIALIST: GERALD 02/27/18922 RPT#: [id number] DC DATE:02/26/18 STATUS: DIS IN [facility] [address] [place] [address] END OF REPORT
--- NOTE | ~2018-02-19 | OP ---
PATIENT NAME: FLORENTINO BARRIENTOS MEDICAL RECORD: [id number] :57 LOCATION:D.M2 D.2139 ADMISSION DATE:02/19/18 SURGEON: KEERTHI MEZA MD DATE OF OPERATION: 02/21/2018 PROCEDURES: Four-vessel vertebral and carotid angiography. INDICATION: TIA symptomatology, carotid vascular disease. PROCEDURE IN DETAIL: After informed consent was obtained and after a detailed description of risks, benefits as well as alternative therapies, the patient elected to proceed with angiogram. The right femoral area had a preexisting sheath. All catheters exchanged through this sheath. FINDINGS: There was subselection of each subclavian as well as the left carotid. RIGHT SIDE: Common internal and external carotids have mild plaquing, none greater than 20% to 30%, no flow-limiting stenosis. Vertebral artery has no significant disease. LEFT SYSTEM: Common internal and external carotids have mild plaquing, none greater than 20%, no flow-limiting stenosis. Vertebral artery has no significant disease. OVERALL IMPRESSION: No significant carotid vascular disease is present. TRANSINT:[id number] Voice Confirmation ID: [id number] DOCUMENT ID: [id number] KEERTHI MEZA MD at 1718 CC: [id number] DICTATION DATE: 02/21/18 1251 PILOT CAN ROUTER: 02/21/18 1414 [place] [address]
--- NOTE | ~2018-02-19 | HEMODYNAMI ---
PATIENT:FLORENTINO BARRIENTOS MEDICAL RECORD: [id number] : 57 LOCATION:[address] ADMISSION DATE: 02/19/18 Generatedon:02/21/201812:51 Patient name: FLORENTINO BARRIENTOS Patient #: [id number] SSN: : 1955 Date of study: 02/21/2018 Page: Of Hemodynamic Procedure Report Patient Data Patient Demographics Procedure consent was obtained First Name: FLORENTINO Gender: Male Last Name: ILIANA : 1955 Patient #: [id number] Age: 62 year(s) Race: Unknown Additional ID: [id number] Contact details Address: [address] [place] [address] State: [place] [facility] Zip code: [address] Past Medical History Allergies Allergen Reaction Date Comments Reported Penicillins 11/08/2017 Admission Admission Data Admission Date: 02/19/2018 Admission Time: 14:28 Room #: 2139 Procedure Procedure Types Cath Procedure Diagnostic Procedure [facility] w/Coronaries PCI Procedure Coronary Stent Coronary Stent Initial Peripheral Cath Diagnostic Procedure Director Surface Transportation Peripheral Procedures Tvcds-Ynvvnjm-Rgy-Off Four Vessel Arteriogram Procedure Description Procedure Date Procedure Date: 02/21/2018 Procedure Start Time: 12:32 Procedure End Time: 12:50 Procedure Staff Name Function Evangelist Vera MD Performing Physician Ciro Almaguer RT Monitor Drew Costa RN Nurse Fani Cohen RT Scrub Procedure Data Cath Procedure Fluoroscopy Diagnostic fluoroscopy Total fluoroscopy Time: 3 time: 3 min min Diagnostic fluoroscopy Total fluoroscopy dose: 241 dose: 241 mGy mGy Contrast Material Contrast Material Type Amount (ml) Isovue 300 152 Entry Location Entry Primary Successful Side Size Upsize Upsize Entry Closure Succes sful Closure Location (Fr) 1 (Fr) 2 (Fr) Remarks Device Remarks Femoral Right 5 Fr 6 Fr Exoseal artery Short Estimated blood loss: 10 ml Diagnostic catheters Device Type Used For End Catheter Placement MULTIPACK Pigtail 5 Fr Procedure catheter MULTIPACK JL 4.0 5Fr Procedure catheter MULTIPACK 3DRC 5Fr Procedure catheter Procedure Complications No complications Procedure Medications Medication Administration Route Dosage Oxygen etCO2 Nasal cannula 2 l/min Lidocaine 2% added to field 20 Heparin Flush Bag added to field 2 bags (1000units/500ml NS) 0.9% NaCl I.V. 100 ml/hr Versed I.V. 1 mg Fentanyl I.V. 50 mcg Versed I.V. 1 mg Fentanyl I.V. 50 mcg Heparin Bolus I.V. 4000 units Hemodynamics Rest Heart Rate: 82 (bpm) Pressure Samples Time Site Value (mmHg) Purpose Heart Use Rate(bpm) 12:35 AO 119/46(79) Snapshot 23 12:39 AO 108/49(74) Snapshot 81 Snapshots Pre Cath Intra NCS Post Cath Vital Signs Time Heart Resp SPO2 etCO2 NIBP (mmHg) Rhythm Pain Sedation Rate (ipm) (%) (mmHg) Status Level (bpm) 12:06:45 85 21 97 0 139/88(116) NSR 0 (11) 10(A) , No pain 12:10:56 80 18 97 0 130/74(108) NSR 0 (11) 10(A) , No pain 12:15:10 80 18 97 0 124/78(110) NSR 0 (11) 10(A) , No pain 12:19:18 79 16 95 37.4 114/73(101) NSR 0 (11) 10(A) , No pain 12:23:28 81 12 96 0 120/72(92) NSR 0 (11) 10(A) , No pain 12:27:40 79 13 94 29.8 119/71(96) NSR 0 (11) 10(A) , No pain 12:31:52 80 12 94 38.1 119/71(101) NSR 0 (11) 9(A) , No pain 12:36:06 79 14 99 38.1 113/67(102) NSR 0 (11) 9(A) , No pain 12:40:16 80 12 94 28.4 126/69(108) NSR 0 (11) 9(A) , No pain 12:44:26 80 13 94 31.3 123/71(99) NSR 0 (11) 9(A) , No pain 12:48:38 83 13 94 11.2 120/69(94) NSR 0 (11) 10(A) , No pain Medications Time Medication Route Dose Verified Delivered Reason Notes Effectiveness by by 12:05:59 Oxygen etCO2 2 Evangelist Antoineie used for Nasal l/min Chuy Costa RN procedure cannula 12:06:09 Lidocaine 2% added 20ml Evangelist Evangelist for local to vial Chuy Vera MD anesthetic field 12:06:16 Heparin Flush added 2 Evangelistjayant Blanca used for Bag to bags Chuy Vera MD procedure (1000units/500ml field NS) 12:06:26 0.9% NaCl I.V. 100 Evangelist Antoineie Per physician ml/hr Chuy Costa RN 12:25:58 Versed I.V. 1 mg Evangelist Russell for sedation Chuy Costa RN 12:26:04 Fentanyl I.V. 50 Evangelist Antoineie for sedation mcg Chuy Costa RN 12:33:18 Versed I.V. 1 mg Evangelist Russell for sedation Chuy Costa RN 12:33:23 Fentanyl I.V. 50 Evangelist Russell for sedation mcg Chuy Costa RN 12:42:58 Heparin Bolus I.V. 4000 Evangelist Russell for verif ied units Chuy Costa RN anticoagulation with dr vera Procedure Log Time Note 11:42:56 Time tracking: Regular hours (M-F 7:00 - 5:00) 11:43:00 Plan of Care:Hemodynamics will remain stable., Cardiac rhythm will remain stable., Comfort level will be maintained., Respiratory function will remain adequate., Patient/ family verbilizes understanding of procedure., Procedure tolerated without complication., Recovers from procedure without complications.. 11:50:15 Ciro Almaguer RT(R) sent for patient. Start room use. 12:03:07 Patient received from Med II to CCL 3 Alert and oriented. Tansferred to table in Supine position. 12:03:16 Warm blankets applied, and tulio hugger turned on for patient comfort. 12:03:16 Correct patient and procedure confirmed by team. 12:03:17 Signed procedure consent form obtained from patient. 12:03:18 ECG and BP/O2 sat monitors applied to patient. 12:05:39 Vital chart was started 12:05:59 Oxygen 2 l/min etCO2 Nasal cannula was administered by Drew Costa RN; used for procedure; 12:06:09 Lidocaine 2% 20ml vial added to field was administered by Evangelist Vera MD; for local anesthetic; 12:06:16 Heparin Flush Bag (1000units/500ml NS) 2 bags added to field was administered by Evangelist Vera MD; used for procedure; 12:06:26 0.9% NaCl 100 ml/hr I.V. was administered by Drew Costa RN; Per physician; 12:09:44 Baseline sample Acquired. 12:09:48 Rhythm: sinus rhythm 12:09:50 Full Disclosure recording started 12:10:03 H&P Date Dictated: 02/19/2018 Within 30 days and on chart., H&P Addendum completed by physician on day of procedure. (MUST COMPLETE FOR ALL OUTPATIENTS). 12:10:04 Pre-procedure instructions explained to patient. 12:10:05 Pre-op teaching completed and patient verbalized understanding. 12:10:11 Family in patients room. 12:10:12 Patient NPO since Midnight. 12:10:14 Is the patient allergic to Iodine/contrast media? No. 12:10:17 Is patient on blood thinner?Yes 12:10:19 ACC The patient was administered the following blood thiners within the last 24 hours: ACCPlavix 12:10:22 Patient diabetic? Yes. 12:10:24 If diabetic: On Metformin? No 12:10:27 Previous problem with sedation/anesthesia? No ? 12:10:31 Snore? No 12:10:33 Sleep apnea? No 12:10:34 Deviated septum? No 12:10:35 Opens mouth fully? Yes 12:10:36 Sticks out tongue? Yes 12:10:37 Airway obstruction? No ? 12:10:41 Dentures? No ? 12:11:06 Pre procedure: right dorsailis pedis pulse 1+ Palpable, but thready & weak; easily obliterated 12:11:07 Patient pain scale 0/10 ?. 12:11:12 IV patent on arrival in left forearm with 0.9% NaCl at KVO. 12:11:14 Lab results completed and on chart. 12:11:17 Right groin area was prepped with chlora-prep and draped in sterile fashion 12:11:18 Alarms reviewed by R. N. 12:11:18 Sharps counted by scrub and verified by R.N. 12:14:59 Use device set Femoral Dx 12:15:33 ACIST Manifold (00816) opened to sterile field. 12:15:34 ACIST Hand Control (40330) opened to sterile field. 12:15:35 Tegaderm 4 x 4 (1626W) opened to sterile field. 12:15:37 Bag Decanter (2002S) opened to sterile field. 12:15:38 ACIST Syringe (11046) opened to sterile field. 12:15:38 Medline Cath Pack ([id number]) opened to sterile field. 12:15:39 DIAGNOSTIC WIRE .035 260cm J wire (317997) opened to sterile field. 12:15:40 DIAGNOSTIC Multipack 5Fr catheter set (MX8364) opened to sterile field. 12:15:42 SHEATH 5FR Dutton (FCP910) opened to sterile field. 12:15:42 IV Extension Set opened to sterile field. 12::35 --------ALL STOP TIME OUT------ 12:25:36 Final Timeout: patient, procedure, and site verified with staff and physician. All members of the team are in agreement. 12:25:38 Right groin site verified by team. 12:25:41 Physical assessment completed. ASA score P 3 - A patient with severe systemic disease as per Evangelist Vera MD. 12:25:44 Sedation plan: IV Moderate Sedation Medication:Versed, Fentanyl 12::58 Versed 1 mg I.V. was administered by Drew Costa RN; for sedation; 12:26:04 Fentanyl 50 mcg I.V. was administered by Drew Costa RN; for sedation; 12:28:29 Zero performed for pressure channel P1 12:32:57 Procedure started. 12:32:59 Local anesthetic to right femoral artery with Lidocaine 2% by Evangelist Vera MD.INITIAL ACCESS ONLY 12:33:18 Versed 1 mg I.V. was administered by Drew Costa RN; for sedation; 12:33:23 Fentanyl 50 mcg I.V. was administered by Drew Costa RN; for sedation; 12:34:10 A 5 Fr sheath was inserted into the Right Femoral artery 12:34:15 A MULTIPACK Pigtail 5 Fr catheter was advanced over the wire and used for Procedure. 12:34:36 LV angiography performed. 12:34:38 LV gram done using GRIMES 12:34:45 EF : 55 % 12:36:15 Injector settings: Ml/sec: 10, Volume: 20, 12:36:34 Abdominal Aortagram was performed. 12:36:41 Left leg runoff performed. 12:36:43 Right leg runoff performed. 12:37:12 Injector settings: Ml/sec: 10, Volume: 20, 12:37:17 Catheter removed. 12:37:33 Procedure type changed to Cath procedure, Diagnostic procedure, LHC, LHC w/Coronaries, PCI procedure, Coronary Stent, Coronary Stent Initial, Peripheral Cath Diagnostic Procedure, Director Surface Transportation Peripheral Procedures, Equtc-Wdknttf-Qsx-Off, Four Vessel Arteriogram 12:37:51 A MULTIPACK JL 4.0 5Fr catheter was advanced over the wire and used for Procedure. 12:38:59 LCA angiography performed. 12:39:09 Catheter removed. 12:39:18 Use device set TAU PCI 12:39:20 SHEATH 6FR Dutton (JJZ734) opened to sterile field. 12:39:24 CHOICE PT Extra Support 182cm wire ([id number]) opened to sterile field. 12:39:26 INFLATOR Merit BasixCompak (PC7198) opened to sterile field. 12:39:31 A MULTIPACK 3DRC 5Fr catheter was advanced over the wire and used for Procedure. 12:39:56 RCA angiography performed. 12:40:12 Right subclavian angiography performed 12:40:16 Left carotid angiography performed. 12:40:17 Left subclavian angiography performed 12:41:18 Catheter removed. 12:41:29 Sheath upsized to a 6 Fr Short. 12:41:53 GUIDE 6FR XB 3.5 catheter ([id number]) opened to sterile field. 12:42:04 6 Fr XB 3.5 guide catheter was inserted over the wire 12:42:32 CPTXS wire advanced. 12:42:58 Heparin Bolus 4000 units I.V. was administered by Drew Costa RN; for anticoagulation; verified with dr vera 12:44:24 Wire advanced across lesion. 12:45:07 Place stent Inflation Number: 1 A INTEGRITY RX 3.0 x 18 stent ([id number]) was prepped and advanced across the Mid CX. The stent was deployed at 17 NATALY for 0:10 (min:sec). 12:46:33 EXOSEAL 6Fr (EX600) opened to sterile field. 12:46:39 Stent catheter was removed intact over wire. 12:46:39 Wire removed. 12:46:40 Guide catheter removed. 12:46:48 Sheath removed intact; hemostasis achieved with Exoseal to the Right Femoral artery. 12:46:51 Procedure ended.(Physican Out) 12:49:00 Fluoroscopy time 03.00 minutes. 12:49:05 Fluoroscopy dose: 241 mGy 12:49:05 Flurop Dose total: 241 12:49:10 Contrast amount:Isovue 300 152ml. 12:49:11 Sharps counted by scrub and verified by R.N. 12:49:13 Insertion/operative site no bleeding no hematoma. 12:49:16 Post-op/insertion site Right Femoral artery dressed using a 4 x 4 and Tegaderm. 12:49:17 Post Procedure Pulses reassessed and unchanged 12:49:20 Post-procedure physical assessment completed. ASA score P 3 - A patient with severe systemic disease as per Evangelist Vera MD. 12:49:29 Post procedure rhythm: unchanged. 12:49:31 Estimated blood loss: 10 ml 12:49:34 Post procedure instruction explained to patient.Patient verbalizes understanding. 12:49:35 Patient needs reinforcement of post procedure teaching. 12:49:42 Procedure and supply charges have been captured, reviewed, submitted and are correct. 12:49:45 Procedure Complication : No complications 12:50:13 Vital chart was stopped 12:50:13 See physician's report for complete and final results. 12:50:18 Report given to [facility]. 12:50:20 Patient transfered to [facility] with Bed. 12:50:23 Procedure ended. 12:50:23 Full Disclosure recording stopped 12:51:14 End room use (Document Last) Intervention Summary Intervention Notes Time ActionType Lesion and Equipment Action# Pressure Duration Attributes Used 12:45:07 Place stent Mid CX INTEGRITY RX 1 17 00:10 3.0 x 18 stent ([id number]) Device Usage Item Name Manufacture Quantity Catalog Number Hospital Part Current Mini mal Lot# / Charge Number Stock Stock Serial# Code ACIST Acist 1 07903 309830 991492 488120 5 AdVantage Networks (14909) Systems Inc ACIST Hand Acist 1 00445 563035 929388 533593 5 Control Medical (22898) Systems Inc Tegaderm 4 x 3M 1 1626W 489228 305378 385448 5 4 (1626W) Bag Decanter Microtek 1 2001S 283838 35918 188253 5 (2001S) Medical Inc. ACIST Acist 1 39017 749567 954596 907548 20 Syringe Medical (00763) Systems Inc Medline Cath Medline 1 [id number] 733670 29401 648599 5 Pack ([id number]) DIAGNOSTIC [facility] [place] 1 990985 783856 412609 728027 30 WIRE .035 260cm J wire (984126) DIAGNOSTIC Cardinal 1 WQ9983 610711 70039 321985 30 Multipack Health 5Fr catheter set (PS2434) SHEATH 5FR Terumo 1 YNR136 713179 162379 850750 40 Dutton (OZY431) IV Extension Hospira 1 95983-83 131038 02793 546156 5 Set MULTIPACK Cardinal 1 913368 5 Pigtail 5 Fr Health catheter MULTIPACK JL Cardinal 1 008961 5 4.0 5Fr Health catheter SHEATH 6FR Terumo 1 WFR163 613855 077265 041225 40 Dutton (COG769) CHOICE PT [place] 1 [id number] 950661 432970 649083 5 Extra Scientific Support 182cm wire ([id number]) INFLATOR Merit 1 SI7388 635144 189929 210950 15 [facility] Medical BasixCompa (RD0084) MULTIPACK Cardinal 1 863400 5 3DRC 5Fr Health catheter GUIDE 6FR XB Cardinal 1 [id number] 236589 973963 885838 2 3.5 catheter Health (09756799) INTEGRITY RX Medtronic 1 [id number] 846031 862822 587012 5 [id number] 3.0 x 18 stent ([id number]) EXOSEAL 6Fr Cardinal 1 EX600 495266 295257 939562 10 (EX600) Health Signature Audit Raymond Stage Time Signature Unsigned Intra-Procedure 02/21/2018 Ciro Almaguer 12:51:37 PM RT(R) Signatures Monitor : Ciro Amlaguer RT Signature : Date : Time : [address] [place] [address]
--- NOTE | ~2018-02-19 | OP ---
PATIENT NAME: FLORENTINO BARRIENTOS MEDICAL RECORD: [id number] :57 LOCATION:D.M2 D.2139 ADMISSION DATE:02/19/18 SURGEON: KEERTHI MEZA MD DATE OF OPERATION: 02/21/2018 PROCEDURES: 1. Aortofemoral runoff. 2. Abdominal aortography. INDICATION: Claudication, peripheral vascular disease, nonhealing lower extremity ulcers. PROCEDURE IN DETAIL: After informed consent was obtained and after a detailed description of risks, benefits as well as alternative therapies, the patient elected to proceed with angiogram. The abdominal aortography was performed. The catheter was pulled down for aortofemoral runoff. Abdominal aortography reveals no significant abdominal aortic disease, no dissection or aneurysm formation. RIGHT LEG: A. Iliac: The common internal and external iliacs have mild irregularities, but no flow-limiting stenosis. B. Femoral system: The common and deep femoral are widely patent. Superficial femoral has previously placed stent, these are widely patent with no significant restenosis. No disease elsewise throughout the SFA or its branches. C. Popliteal and infrapopliteal vessels: Popliteal is widely patent and infrapopliteal vessels are moderate to severely diffusely diseased, but patent. LEFT LEG: A. Iliac: The common internal and external iliacs have mild irregularities, but no flow-limiting stenosis. B. Femoral system: The common and deep femoral are widely patent. Superficial femoral has multiple previously placed stents. These are widely patent with no significant restenosis. No disease elsewise throughout the SFA or its branches. C. Popliteal and infrapopliteal vessels: The popliteal as well has a previously placed stent. This is widely patent. There is good 2-vessel runoff through the posterior tibial and peroneal. OVERALL IMPRESSION: Wide patency of the previously placed stents in the SFA, diffuse disease. Infrapopliteal is the etiology of the nonhealing ulcers. Continue medical management of peripheral vascular disease and peripheral vascular risk factors. TRANSINT:[id number] Voice Confirmation ID: [id number] DOCUMENT ID: [id number] KEERTHI MEZA MD at 1718 CC: [id number] DICTATION DATE: 02/21/18 1257 BDC MANAGER: 02/21/18 1413 [place] [address]
[~2018-02-19 14:28] MED LIST changes: +COZAAR50 MG PO; +FLOMAX0.4 MG PO; +KEFLEX500 MG PO
[2018-02-19] MEDS ORDERED: OMEPRAZOLE40 MG PO (15:36)
[2018-02-19] MEDS ORDERED: POTASSIUM99 M1 PO (15:38)
[2018-02-19] MEDS ORDERED: VITAMIN D5000 UNIT PO (15:38)
[2018-02-19] MEDS ORDERED: ASCORBIC ACID500 MG PO (15:39)
[2018-02-19] MEDS ORDERED: CINNAMON500 MG PO (15:39)
[2018-02-19] MEDS ORDERED: CALCIUM 600 +1 EAC3 PO (15:40)
[2018-02-19] MEDS ORDERED: PLAVIX75 MG PO (15:40)
[2018-02-19 16:03] VITALS: BP 152/76
[2018-02-19 19:00] VITALS: BP 97/54
[2018-02-19 19:31] VITALS: BMI 23.6
[2018-02-20 00:45] VITALS: BP 124/57
[2018-02-20 04:57] VITALS: BP 123/75
[2018-02-20 06:23] LABS: BASOPHILS 0.4 % (0-2); EOSINOPHILS 1.7 % (0-7); HEMATOCRIT 29.7 % (42.0-54.0); HEMOGLOBIN 9.5 g/dL (13.5-17.5); IMMATURE GRANULOCYTES 0.2 % (0-5); LYMPHOCYTES 25.1 % (15-50); MCH 26.6 pg (26.0-34.0); MCV 83.2 fL (80.0-100.0); MEAN PLATELET VOLUME 8.9 fL (7.4-10.4); MONOCYTES 11.4 % (2-11); NEUTROPHILS 61.2 % (40-80); RBC 3.57 10x6/uL (4.20-6.10); WBC 8.2 10x3/uL (4.8-10.8)
[2018-02-20 06:52] LABS: ALBUMIN 2.1 g/dL (3.4-5.0); ALKALINE PHOSPHATASE 78 U/L (46-116); ALT (SGPT) 18 U/L (10-68); BILIRUBIN - TOTAL 0.39 mg/dL (0.2-1.3); CALC OSMOLALITY 274 mosm/kg (275-300); CALCIUM 8.9 mg/dL (8.5-10.1); CARBON DIOXIDE 28.8 mmol/L (21.0-32.0); CHLORIDE - SERUM 100 mmol/L (98-107); MAGNESIUM - SERUM 2.2 mg/dL (1.8-2.4); POTASSIUM - SERUM 3.6 mmol/L (3.5-5.1); SODIUM 136 mmol/L (136-145); UREA NITROGEN 7 mg/dL (7-18); eGFR NON AFRICAN AMERICAN 81 mL/min (90-120)
[2018-02-20 06:55] LABS: GLUCOSE 186 mg/dL (74-106)
[2018-02-20 07:01] LABS: PLATELET COUNT 397 10x3/uL (130-400)
[2018-02-20 08:40] VITALS: BP 152/65
[2018-02-20 12:22] VITALS: BP 133/74
[2018-02-20 12:27] VITALS: Ht 175.3 cm; Wt 79.1 kg
[2018-02-20 20:42] VITALS: BP 136/75
[2018-02-21 01:09] VITALS: BP 109/62
[2018-02-21 04:48] VITALS: BP 126/68
[2018-02-21 06:14] LABS: BASOPHILS 0.4 % (0-2); EOSINOPHILS 2.4 % (0-7); HEMATOCRIT 30.2 % (42.0-54.0); HEMOGLOBIN 9.7 g/dL (13.5-17.5); IMMATURE GRANULOCYTES 0.2 % (0-5); LYMPHOCYTES 24.2 % (15-50); MCH 26.6 pg (26.0-34.0); MCHC 32.1 g/dL (31.0-37.0); MEAN PLATELET VOLUME 8.8 fL (7.4-10.4); MONOCYTES 8.5 % (2-11); NEUTROPHILS 64.3 % (40-80); PLATELET COUNT 375 10x3/uL (130-400); RBC 3.64 10x6/uL (4.20-6.10); RDW 14.1 % (11.5-14.5); WBC 8.3 10x3/uL (4.8-10.8)
[2018-02-21 06:44] LABS: ALBUMIN 2.1 g/dL (3.4-5.0); ANION GAP 9.4 mmol/L (8-16); BILIRUBIN - TOTAL 0.36 mg/dL (0.2-1.3); C-REACTIVE PROTEIN 14.8 mg/dL (0.0-0.9); CALCIUM 8.7 mg/dL (8.5-10.1); CARBON DIOXIDE 29.3 mmol/L (21.0-32.0); CREATININE - SERUM 1.1 mg/dL (0.6-1.3); POTASSIUM - SERUM 3.7 mmol/L (3.5-5.1); PROTEIN - SERUM 8.2 g/dL (6.4-8.2)
[2018-02-21 08:09] VITALS: BP 140/74
[2018-02-21 09:36] LABS: ERYTHROCYTE SEDIMENTATION RATE 131 mm/hr (0-20)
[2018-02-21 11:25] VITALS: BP 142/71
[2018-02-21 16:00] VITALS: BP 117/71
[2018-02-21 21:30] VITALS: BP 108/67
[2018-02-22] VITALS (7 sets, daily range): BP systolic 92–146; BP diastolic 47–74
[2018-02-22 06:03] LABS: BASOPHILS 0.4 % (0-2); EOSINOPHILS 1.8 % (0-7); HEMATOCRIT 30.7 % (42.0-54.0); HEMOGLOBIN 9.8 g/dL (13.5-17.5); IMMATURE GRANULOCYTES 0.2 % (0-5); LYMPHOCYTES 15.6 % (15-50); MCH 26.5 pg (26.0-34.0); MCHC 31.9 g/dL (31.0-37.0); MEAN PLATELET VOLUME 8.8 fL (7.4-10.4); MONOCYTES 7.2 % (2-11); NEUTROPHILS 74.8 % (40-80); PLATELET COUNT 380 10x3/uL (130-400); RDW 14.1 % (11.5-14.5)
[2018-02-22 06:12] LABS: WBC 10.9 10x3/uL (4.8-10.8)
[2018-02-22 06:19] LABS: ALBUMIN 2.1 g/dL (3.4-5.0); ANION GAP 10.4 mmol/L (8-16); BILIRUBIN - TOTAL 0.4 mg/dL (0.2-1.3); CALCIUM 8.5 mg/dL (8.5-10.1); CARBON DIOXIDE 28.8 mmol/L (21.0-32.0); CREATININE - SERUM 1.1 mg/dL (0.6-1.3); MAGNESIUM - SERUM 1.9 mg/dL (1.8-2.4); POTASSIUM - SERUM 4.2 mmol/L (3.5-5.1); PROTEIN - SERUM 8.3 g/dL (6.4-8.2)
[2018-02-22 16:02] LABS: BASOPHILS 0.8 % (0-2); HEMATOCRIT 24.7 % (42.0-54.0); IMMATURE GRANULOCYTES 0.2 % (0-5); LYMPHOCYTES 28.5 % (15-50); MCH 26.2 pg (26.0-34.0); MCHC 31.6 g/dL (31.0-37.0); MCV 82.9 fL (80.0-100.0); MEAN PLATELET VOLUME 8.7 fL (7.4-10.4); MONOCYTES 6.6 % (2-11); NEUTROPHILS 60.9 % (40-80); PLATELET COUNT 343 10x3/uL (130-400); RBC 2.98 10x6/uL (4.20-6.10)
[2018-02-22 16:04] LABS: HEMOGLOBIN 7.8 g/dL (13.5-17.5); WBC 6.6 10x3/uL (4.8-10.8)
[2018-02-23 01:20] VITALS: BP 101/55
[2018-02-23 06:38] VITALS: BP 117/61
[2018-02-23 06:40] LABS: BASOPHILS 0.3 % (0-2); HEMATOCRIT 27.1 % (42.0-54.0); HEMOGLOBIN 8.7 g/dL (13.5-17.5); IMMATURE GRANULOCYTES 0.1 % (0-5); MCH 26.9 pg (26.0-34.0); MCHC 32.1 g/dL (31.0-37.0); MCV 83.9 fL (80.0-100.0); MONOCYTES 7.7 % (2-11); NEUTROPHILS 72.9 % (40-80); PLATELET COUNT 335 10x3/uL (130-400); RBC 3.23 10x6/uL (4.20-6.10); WBC 9.7 10x3/uL (4.8-10.8)
[2018-02-23 06:50] LABS: ALBUMIN 1.9 g/dL (3.4-5.0); ANION GAP 12.5 mmol/L (8-16); BILIRUBIN - TOTAL 0.72 mg/dL (0.2-1.3); CARBON DIOXIDE 24.7 mmol/L (21.0-32.0); CREATININE - SERUM 1.1 mg/dL (0.6-1.3); MAGNESIUM - SERUM 1.8 mg/dL (1.8-2.4); POTASSIUM - SERUM 4.2 mmol/L (3.5-5.1)
[2018-02-23 09:41] VITALS: BP 113/69; BP 114/83
[2018-02-23 13:11] VITALS: BP 106/65
[2018-02-23 16:47] VITALS: BP 118/66
[2018-02-23 20:00] VITALS: BP 132/68
[2018-02-24] VITALS: BP 139/67
[2018-02-24 04:00] VITALS: BP 138/68
[2018-02-24 07:37] LABS: BASOPHILS 0.4 % (0-2); EOSINOPHILS 2.7 % (0-7); HEMATOCRIT 26.1 % (42.0-54.0); HEMOGLOBIN 8.2 g/dL (13.5-17.5); IMMATURE GRANULOCYTES 0.1 % (0-5); MCH 26.1 pg (26.0-34.0); MCHC 31.4 g/dL (31.0-37.0); MCV 83.1 fL (80.0-100.0); MONOCYTES 7.6 % (2-11); NEUTROPHILS 68.2 % (40-80); PLATELET COUNT 330 10x3/uL (130-400); RBC 3.14 10x6/uL (4.20-6.10); WBC 8.4 10x3/uL (4.8-10.8)
[2018-02-24 08:11] LABS: ALBUMIN 1.9 g/dL (3.4-5.0); ALKALINE PHOSPHATASE 72 U/L (46-116); BILIRUBIN - TOTAL 0.35 mg/dL (0.2-1.3); CALCIUM 8.3 mg/dL (8.5-10.1); CARBON DIOXIDE 26.2 mmol/L (21.0-32.0); CHLORIDE - SERUM 101 mmol/L (98-107); GLUCOSE 322 mg/dL (74-106); MAGNESIUM - SERUM 1.9 mg/dL (1.8-2.4); PROTEIN - SERUM 7.2 g/dL (6.4-8.2); SODIUM 136 mmol/L (136-145); eGFR NON AFRICAN AMERICAN 81 mL/min (90-120)
[2018-02-24 08:12] LABS: ALT (SGPT) 13 U/L (10-68); CALC OSMOLALITY 281 mosm/kg (275-300); UREA NITROGEN 8 mg/dL (7-18)
[2018-02-24 09:50] VITALS: BP 124/67
[2018-02-24 16:40] VITALS: BP 107/61
[2018-02-24 20:00] VITALS: BP 133/73
[2018-02-25] VITALS: BP 150/71
[2018-02-25 04:00] VITALS: BP 138/72
[2018-02-25 09:00] VITALS: BP 153/78
[2018-02-25 12:07] VITALS: BP 141/75
[2018-02-25 13:14] LABS: BASOPHILS 0.4 % (0-2); HEMATOCRIT 27.2 % (42.0-54.0); HEMOGLOBIN 8.8 g/dL (13.5-17.5); IMMATURE GRANULOCYTES 0.1 % (0-5); LYMPHOCYTES 20.6 % (15-50); MCH 26.9 pg (26.0-34.0); MCHC 32.4 g/dL (31.0-37.0); MCV 83.2 fL (80.0-100.0); MEAN PLATELET VOLUME 9.2 fL (7.4-10.4); MONOCYTES 6.7 % (2-11); NEUTROPHILS 69.2 % (40-80); PLATELET COUNT 380 10x3/uL (130-400); RBC 3.27 10x6/uL (4.20-6.10); WBC 7.4 10x3/uL (4.8-10.8)
[2018-02-25 13:17] LABS: CALC OSMOLALITY 280 mosm/kg (275-300); CALCIUM 8.4 mg/dL (8.5-10.1); CARBON DIOXIDE 29.2 mmol/L (21.0-32.0); CHLORIDE - SERUM 100 mmol/L (98-107); CREATININE - SERUM 0.9 mg/dL (0.6-1.3); GLUCOSE 339 mg/dL (74-106); POTASSIUM - SERUM 3.7 mmol/L (3.5-5.1); SODIUM 135 mmol/L (136-145); UREA NITROGEN 8 mg/dL (7-18); eGFR NON AFRICAN AMERICAN > 90 mL/min (90-120)
[2018-02-25 16:09] VITALS: BP 140/73
[2018-02-25 20:21] VITALS: BP 133/69
[2018-02-26 01:09] VITALS: BP 147/69
[2018-02-26 05:32] VITALS: BP 134/70
[2018-02-26 08:36] VITALS: BP 147/79
[2018-02-26 12:58] VITALS: BP 155/75
[2018-02-26 16:23] VITALS: BP 150/77
[2018-02-26] MEDS ORDERED: LEVAQUIN750 MG PO (17:09)
== END 2018-02-26 18:52 | disposition home or self-care (01) | DRG 981 ==
LOC: D.M2 14:28
PROVIDERS: Anesthesiology; Family Medicine; Internal Medicine Interventional Cardiology; Internal Medicine Nephrology
PROC: B2151ZZ Fluoroscopy of Left Heart using Low Osmolar Contrast (ICD-10-PCS; 2018-02-21)
PROC: B3151ZZ Fluoroscopy of Bilateral Common Carotid Arteries using Low Osmolar Contrast (ICD-10-PCS; 2018-02-21)
PROC: B31G1ZZ Fluoroscopy of Bilateral Vertebral Arteries using Low Osmolar Contrast (ICD-10-PCS; 2018-02-21)
PROC: B3121ZZ Fluoroscopy of Left Subclavian Artery using Low Osmolar Contrast (ICD-10-PCS; 2018-02-21)
PROC: B4101ZZ Fluoroscopy of Abdominal Aorta using Low Osmolar Contrast (ICD-10-PCS; 2018-02-21)
PROC: 02703DZ Dilation of Coronary Artery, One Artery with Intraluminal Device, Percutaneous Approach (ICD-10-PCS; principal; 2018-02-21 11:50)
PROC: 4A023N7 Measurement of Cardiac Sampling and Pressure, Left Heart, Percutaneous Approach (ICD-10-PCS; 2018-02-21 11:50)
PROC: B2111ZZ Fluoroscopy of Multiple Coronary Arteries using Low Osmolar Contrast (ICD-10-PCS; 2018-02-21 11:50)
PROC: 0H9NXZZ Drainage of Left Foot Skin, External Approach (ICD-10-PCS; 2018-02-22)
DX: E11.69 Type 2 diabetes mellitus with other specified complication (principal); E43 Unspecified severe protein-calorie malnutrition; M86.172 Other acute osteomyelitis, left ankle and foot; I25.119 Atherosclerotic heart disease of native coronary artery with unspecified angina pectoris; E11.42 Type 2 diabetes mellitus with diabetic polyneuropathy; N40.0 Benign prostatic hyperplasia without lower urinary tract symptoms; I10 Essential (primary) hypertension; E11.51 Type 2 diabetes mellitus with diabetic peripheral angiopathy without gangrene; Z68.23 Body mass index [BMI] 23.0-23.9, adult

== ENCOUNTER → 2018-04-04 17:49 | Outpatient (CLI) | payer MEDICARE ==
[2018-02-20 12:27] VITALS: BMI 23.6
[~2018-04-04 17:49] MED LIST changes: +ASCORBIC ACID500 MG PO; +CALCIUM 600 +1 EAC3 PO; +CINNAMON500 MG PO; +LEVAQUIN750 MG PO; +OMEPRAZOLE40 MG PO; +PLAVIX75 MG PO; +POTASSIUM99 M1 PO; +VITAMIN D5000 UNIT PO
[2018-04-04 18:40] LABS: BASOPHILS 0.4 % (0-2); EOSINOPHILS 3.3 % (0-7); HEMATOCRIT 36.5 % (42.0-54.0); HEMOGLOBIN 11.8 g/dL (13.5-17.5); IMMATURE GRANULOCYTES 0.3 % (0-5); LYMPHOCYTES 24.3 % (15-50); MCH 26.6 pg (26.0-34.0); MCHC 32.3 g/dL (31.0-37.0); MCV 82.4 fL (80.0-100.0); MEAN PLATELET VOLUME 9.5 fL (7.4-10.4); MONOCYTES 7.5 % (2-11); NEUTROPHILS 64.2 % (40-80); PLATELET COUNT 320 10x3/uL (130-400); RBC 4.43 10x6/uL (4.20-6.10); RDW 16.6 % (11.5-14.5); WBC 9.6 10x3/uL (4.8-10.8)
[2018-04-04 19:53] LABS: ERYTHROCYTE SEDIMENTATION RATE 56 mm/hr (0-20)
== END | disposition home or self-care (01) ==
LOC: D.LABREF 17:49
PROVIDERS: Student in an Organized Health Care Education/Training Program
DX: M86.9 Osteomyelitis, unspecified (principal)

== ENCOUNTER → 2018-05-08 17:47 | Outpatient (CLI) | payer SELFPAY ==
[2018-02-20 12:27] VITALS: BMI 23.6
[2018-05-08 19:21] LABS: BASOPHILS 0.3 % (0-2); EOSINOPHILS 2.4 % (0-7); HEMATOCRIT 38.1 % (42.0-54.0); HEMOGLOBIN 12.4 g/dL (13.5-17.5); IMMATURE GRANULOCYTES 0.3 % (0-5); MCH 27.6 pg (26.0-34.0); MCHC 32.5 g/dL (31.0-37.0); MCV 84.9 fL (80.0-100.0); MONOCYTES 8.5 % (2-11); NEUTROPHILS 65.5 % (40-80); PLATELET COUNT 256 10x3/uL (130-400); RBC 4.49 10x6/uL (4.20-6.10); RDW 18.6 % (11.5-14.5); WBC 10.3 10x3/uL (4.8-10.8)
[2018-05-08 19:38] LABS: C-REACTIVE PROTEIN 0.8 mg/dL (0.0-0.9)
[2018-05-08 21:08] LABS: ERYTHROCYTE SEDIMENTATION RATE 28 mm/hr (0-20)
== END | disposition home or self-care (01) ==
LOC: D.LABREF 17:47
PROVIDERS: Student in an Organized Health Care Education/Training Program
DX: M86.8X7 Other osteomyelitis, ankle and foot (principal)

== ENCOUNTER → 2018-05-23 16:00 | Outpatient (CLI) | payer MEDICARE, BC ==
[2018-02-20 12:27] VITALS: BMI 23.6
[2018-05-23 17:13] LABS: BASOPHILS 0.4 % (0-2); HEMOGLOBIN 11.7 g/dL (13.5-17.5); IMMATURE GRANULOCYTES 0.2 % (0-5); LYMPHOCYTES 24.8 % (15-50); MCH 27.7 pg (26.0-34.0); MCHC 32.5 g/dL (31.0-37.0); MCV 85.3 fL (80.0-100.0); MONOCYTES 8.2 % (2-11); NEUTROPHILS 63.4 % (40-80); PLATELET COUNT 252 10x3/uL (130-400); RBC 4.22 10x6/uL (4.20-6.10); RDW 18.9 % (11.5-14.5)
[2018-05-23 18:47] LABS: ERYTHROCYTE SEDIMENTATION RATE 1 mm/hr (0-20)
== END | disposition home or self-care (01) ==
LOC: D.LABREF 16:00
PROVIDERS: ATTEND Student in an Organized Health Care Education/Training Program
DX: M86.9 Osteomyelitis, unspecified (principal)

== ENCOUNTER → 2018-12-19 09:59 | Outpatient (CLI) | payer MEDICARE, BC ==
[2018-02-20 12:27] VITALS: BMI 23.6
[2018-12-19 11:22] LABS: ALBUMIN 3.6 g/dL (3.4-5.0); ALKALINE PHOSPHATASE 110 U/L (46-116); ALT (SGPT) 27 U/L (10-68); BILIRUBIN - TOTAL 1.28 mg/dL (0.2-1.3); CALC OSMOLALITY 282 mosm/kg (275-300); CALCIUM 9.1 mg/dL (8.5-10.1); CARBON DIOXIDE 29.3 mmol/L (21.0-32.0); CHLORIDE - SERUM 101 mmol/L (98-107); CHOL - HDL RATIO 4.3 ratio (2.3-4.9); CHOLESTEROL, TOTAL 111 mg/dL (0-200); GLUCOSE 144 mg/dL (74-106); HDL CHOLESTEROL 26 mg/dL (32-96); LDL CHOLESTEROL 67 mg/dL (0-100); LDL-HDL RATIO 2.6 ratio (1.5-3.5); POTASSIUM - SERUM 3.7 mmol/L (3.5-5.1); PROTEIN - SERUM 7.6 g/dL (6.4-8.2); SODIUM 139 mmol/L (136-145); THYROID STIMULATING HORMONE 1.18 uIU/mL (0.36-3.74); TRIGLYCERIDE 94 mg/dL (30-200); UREA NITROGEN 17 mg/dL (7-18); eGFR NON AFRICAN AMERICAN 80 mL/min (90-120)
[2018-12-19 11:29] LABS: BASOPHILS 0.1 % (0-2); EOSINOPHILS 1.3 % (0-7); HEMATOCRIT 41.8 % (42.0-54.0); HEMOGLOBIN 15.2 g/dL (13.5-17.5); IMMATURE GRANULOCYTES 0.2 % (0-5); LYMPHOCYTES 14.7 % (15-50); MCH 32.8 pg (26.0-34.0); MCHC 36.4 g/dL (31.0-37.0); MCV 90.3 fL (80.0-100.0); MEAN PLATELET VOLUME 10.9 fL (7.4-10.4); MONOCYTES 7.6 % (2-11); NEUTROPHILS 76.1 % (40-80); RBC 4.63 10x6/uL (4.20-6.10); RDW 13.2 % (11.5-14.5); WBC 13.4 10x3/uL (4.8-10.8)
[2018-12-19 12:09] LABS: PLATELET COUNT 197 10x3/uL (130-400)
[2018-12-19 12:25] LABS: APPEARANCE HAZY (CLEAR); COLOR YELLOW (YELLOW); SPECIFIC GRAVITY 1.015 (1.005-1.020)
[2018-12-19 12:27] LABS: AMORPHOUS SEDIMENT <1+ /lpf (NONE SEEN); BACTERIA FEW /hpf (NEGATIVE); BILIRUBIN NEGATIVE (NEGATIVE); EPITHELIAL CELLS RARE /hpf (0-5); GLUCOSE 50 mg/dL (NEGATIVE); KETONE MODERATE mg/dL (NEGATIVE); MUCUS <1+ /lpf (NONE SEEN); NITRITE POSITIVE (NEGATIVE); PROTEIN TRACE mg/dL (NEGATIVE); RED CELLS - URINE RARE /hpf (0-5); UROBILINOGEN NORMAL (NORMAL); WHITE CELLS - URINE 0-5 /hpf (NEGATIVE)
== END | disposition home or self-care (01) ==
LOC: D.LAB 09:59
PROVIDERS: ATTEND Family Medicine
DX: E11.9 Type 2 diabetes mellitus without complications (principal); I25.10 Atherosclerotic heart disease of native coronary artery without angina pectoris; I73.9 Peripheral vascular disease, unspecified

== ENCOUNTER → 2018-12-21 16:06 | Outpatient (CLI) | payer MEDICARE, BC ==
[2018-02-20 12:27] VITALS: BMI 23.6
== END | disposition home or self-care (01) ==
LOC: D.LABREF 16:06
PROVIDERS: ATTEND Podiatrist Foot & Ankle Surgery
DX: L03.116 Cellulitis of left lower limb (principal)

== ENCOUNTER 2019-02-14 12:29 | Inpatient (IN) | payer MEDICARE, BC ==
[~2019-02-14] VITALS: Ht 177.8 cm; Wt 78.9 kg
[2019-02-20] MEDS ORDERED: VIBRAMYCIN 100100 MG PO (15:41)
[2019-02-25 09:55] LABS: CALCIUM 8.9 mg/dL (8.5-10.1); CARBON DIOXIDE 35.7 mmol/L (21.0-32.0); CREATININE - SERUM 1.1 mg/dL (0.6-1.3); POTASSIUM - SERUM 3.7 mmol/L (3.5-5.1)
[2019-02-25 09:56] LABS: HEMATOCRIT 33.6 % (42.0-54.0); HEMOGLOBIN 10.6 g/dL (13.5-17.5); MCH 27.8 pg (26.0-34.0); MCHC 31.5 g/dL (31.0-37.0); MCV 88.2 fL (80.0-100.0); MEAN PLATELET VOLUME 9.2 fL (7.4-10.4); RBC 3.81 10x6/uL (4.20-6.10); RDW 14.8 % (11.5-14.5); WBC 11.7 10x3/uL (4.8-10.8)
[2019-02-25] MEDS ORDERED: BAYER CHEWABLE81 MG PO (10:36)
[2019-02-25] MEDS ORDERED: HYDROCODON-ACE1 EAC7 PO (10:37)
[2019-02-25] MEDS ORDERED: BASAGLAR K100 UNIT/1 SC (10:38)
[2019-02-25 10:58] VITALS: BP 140/72; BMI 28.1
--- NOTE | 2019-02-25 14:11 | NUR ---
1358 RECEIVED PATIENT WITH DEEP EVEN RESPIRATIONS, OPA INTACT
--- NOTE | 2019-02-25 14:12 | NUR ---
1405 PATIENT RESPONDS TO COMMANDS, OPA DISCONTINUED
[2019-02-25 14:46] VITALS: BP 145/71
--- NOTE | 2019-02-25 14:48 | NUR ---
REC'D TO ROOM 2217 AT THIS TIME FROM THE RECOVERY SUITE. RESP EVEN AND UNLABORED WITH NO DISTRESS NOTED. CAN EXPRESS NEEDS AND WANTS. NO C/O AT THIS TIME OF PAIN OR DISCOMFORT. NKECHI WRAP NOTED TO LEFT BELOW KNEE AMPUTATION. IV INFUSING AT THIS TIME. FAMILY AND C/L IN REACH AT BEDSIDE.
[2019-02-25 15:11] VITALS: BP 136/73; BMI 25.0
--- NOTE | 2019-02-25 17:36 | NUR ---
GROUP CONTRACT ANALYST WAS STARTED FOR C/O PAIN RATING 9/10 ON PAIN SCALE. C/L IN REACH AT BEDSIDE.
--- NOTE | 2019-02-25 17:56 | NUR ---
COMMISSION CLERK STARTED AT THIS TIME CHECK VIA TWO NURSE. C/O PAIN RATING 9/10 ON PAIN SCALE. C/L IN REACH AT BEDSIDE.
[2019-02-25 19:30] VITALS: BP 109/48
--- NOTE | 2019-02-25 20:00 | NUR ---
ASSESSMENT PER FLOWSHEET. IV PATENT LEFT WRIST OF NS AT 50CC'S/HR. O2 ON 2L/M PER NC. CONNECTED TO FLOWMETER. SERVICE DOG TRAINER OF DILAUDID WITH SETTINGS AT 0.2MG Q10MIN W/4MG Q4H L/O. DRESSING TO LT STUMP C/D/I. OLD RT AKA.
--- NOTE | 2019-02-25 21:30 | NUR ---
MEDS GIVEN PER MAR. SRXO=137.HUMALOG INSULIN 6 UNITS GIVEN SUBC PER S/S
--- NOTE | 2019-02-26 | NUR ---
SLEEPING RESPIRATIONS WITH EASE AND UNLABORED.
[2019-02-26 00:30] VITALS: BP 132/59
--- NOTE | 2019-02-26 02:06 | NUR ---
RESTING QUIETLY DENIES NEEDS SR UP X2 CALL LIGHT WITHIN REACH.
[2019-02-26 05:00] VITALS: BP 136/65
[2019-02-26 05:31] LABS: HEMATOCRIT 31.7 % (42.0-54.0); HEMOGLOBIN 9.6 g/dL (13.5-17.5)
[2019-02-26 08:05] VITALS: BP 120/62
--- NOTE | 2019-02-26 08:30 | NUR ---
PATIENT IN BED WITH IV INTACT. NO COMPLAINTS OR SIGNS OF DISTRESS. LEFT STUMP DRESSING CDI. CALL LIGHT WITHIN REACH. WILL CONTINUE TO MONITOR.
--- NOTE | 2019-02-26 10:00 | NUR ---
PATIENT WITH PT.
--- NOTE | 2019-02-26 11:42 | OP ---
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 POSTOPERATIVE DIAGNOSIS: Chronic osteomyelitis of the left foot and ankle. PROCEDURE: Left below-knee amputation. SURGEON: Claudia Jones MD RN CLINICAL APPEALS: Tigre Del Cid. INTRAOPERATIVE COMPLICATIONS: Essentially none. SUMMARY OF PATHOLOGIC FINDINGS: The portions of the posterior flap did appear to have some mild necrosis; however, they remain contractile and the posterior flap utilized for the BKA did appear to be viable with adequate bleeding. OPERATIVE SUMMARY IN DETAIL: After obtaining the appropriate preoperative orthopedic surgery consent as well as anesthetic consultation, evaluation and clearance, the patient was taken to the operating room and placed on operating table in supine position. After adequate perioperative timeout was taken and agreed upon by all, tourniquet was placed about the proximal aspect of left lower extremity. Left lower extremity was then prepped and draped in routine sterile fashion. The osteomyelitic foot was isolated with an impervious stockinette. The leg was then elevated, not exsanguinated. Tourniquet was inflated to 350 mmHg. Planned incision was drawn with a large posterior flap given the appropriate amount of residual tibia. Incision was made, taken down to the level of the tibia and the fibula. Then, corticotomy was completed with the sagittal saw. Anterior Chevron was created to maintain smoothness of the anterior BKA. Having completed this, amputation knife was used to complete the posterior flap. The posterior tibial artery was dissected down and was tied off just above the trifurcation. At this point, the tourniquet was deflated. Any other bleeders were high ligated or cauterized to make this relatively dry. Please note that the fibula was osteotomized just proximal to the tibia with a slight angular cannulation. After copious irrigation, the flap was brought up to the anterior periosteum and fascia and sutured with a #1 Vicryl. This was followed by #1 Vicryl, 2-0 Vicryl and skin flako. Sterile dressings were applied. Final closure was done by Tigre Del Cid. The patient was then awakened and taken to recovery room in stable condition. All final needle and sponge counts were correct. TRANSINT:[id number] Voice Confirmation ID: [id number] DOCUMENT ID: [id number] OPERATIVE REPORT [id number] FLORENTINO BARRIENTOS MD, CLAUDIA SOLORIO at 1142 CC: [id number] DICTATION DATE: 02/26/1933 VEGETABLE VENDOR: 02/26/19 1038 ADM IN [facility] [address] [place] [address]
[2019-02-26 12:15] VITALS: Ht 177.8 cm; Wt 78.9 kg
[2019-02-26 12:27] VITALS: BP 129/43
--- NOTE | 2019-02-26 12:30 | NUR ---
PATIENT BS READING 585 X 2. PATIENT STATED HE DIDNT KNOW WHY IT WOULD BE SO HIGH HE DIDNT EAT ANYTHING. WILL PUT IN STAT LAB.
--- NOTE | 2019-02-26 12:53 | NUR ---
GLUCOSE STAT PUT IN AT THIS TIME. PATIENT IN BED WITH NO COMPLAINTS CALL LIGHT WITHIN REACH.
[2019-02-26 16:03] VITALS: BP 128/60
[2019-02-26 19:30] VITALS: BP 154/63
--- NOTE | 2019-02-26 19:40 | NUR ---
PT SITTING UP IN BED WITHOUT DISTRESS, AOX4. IV LEFT FA INFUSING 1/2NS @ 50. DILAUDID BLACKJACK DEALER IN USE. PT STATES NO PAIN. DENIES NEEDS. CL IN REACH, WILL CTM
[2019-02-27 00:30] VITALS: BP 160/74
[2019-02-27 04:55] LABS: HEMATOCRIT 30.2 % (42.0-54.0); HEMOGLOBIN 9.3 g/dL (13.5-17.5)
[2019-02-27 05:00] VITALS: BP 148/70
[2019-02-27 08:11] VITALS: BP 123/61
--- NOTE | 2019-02-27 08:45 | NUR ---
PATIENT IN BED WITH IV INTACT. N O COMPLAINTS OR SIGNS OF DISTRESS. CALL LIGHTW ITHIN REACH.
[2019-02-27 12:15] VITALS: BP 154/86
[2019-02-27 16:09] VITALS: BP 156/75
--- NOTE | 2019-02-27 18:45 | NUR ---
PATIENT IN BED WITH IV INTACT. EYES CLOSED RESTING QUIETLY. CALL LIGHT WITHIN REACH.
[2019-02-27 21:57] VITALS: BP 135/63
[2019-02-28 02:42] VITALS: BP 122/61
--- NOTE | 2019-02-28 02:47 | NUR ---
PT RESTING IN BED. EYES CLOSED. NO SIGNS OF DISTRESS. BREATHING EVEN AND UNLABORED. IV SITE LT FA DRESSING CLEAN DRY AND INTACT. NO SIGNS OF INFECTION OR INFULTRATION. BOWEL SOUNDS ACTIVE. LUNG SOUNDS CLEAR. SKIN CLEAN DRY AND INTACT. RT OLD BKA. LT BKA DRESSING CLEAN DRY AND INTACT. WILL CONTINUE PLAN OF CARE. CALL LIGHT IN REACH. BED LOWERED AND LOCKED. BED RAILS UPX2.
--- NOTE | 2019-02-28 03:12 | NUR ---
I have reviewed this patient and I concur with the Shift Assessment completed by the Licensed Practical Nurse today this shift.
[2019-02-28 06:49] VITALS: BP 99/54
[2019-02-28] MEDS ORDERED: ELIQUIS2.5 MG PO (08:06)
[2019-02-28] MEDS ORDERED: HYDROCODON-ACE1 EA10 PO (08:07)
--- NOTE | 2019-02-28 08:14 | NUR ---
SITTING UP IN BED. PT IS WITHOUT DISTRESS.CALL LIGHT IN REACH
--- NOTE | 2019-02-28 08:39 | NUR ---
PT GOR VERY HOT AND NAUSEOUS STATED BLOOD SUGAR IS LOW, GAVE PT APPLE JUICE AND TURNED ON AIR, NO OTHER NEEDS VOICED, PT STATED HE FELT BETTER CONTINUE WITH PLAN OF CARE
[2019-02-28 08:51] LABS: HEMATOCRIT 30.1 % (42.0-54.0); HEMOGLOBIN 9.8 g/dL (13.5-17.5)
[2019-02-28 09:32] VITALS: BP 174/88
--- NOTE | 2019-02-28 12:31 | MORECARE ---
CASE MANAGEMENT DISCHARGE SUMMARY PATIENT: FLORENTINO BARRIENTOS UNIT: [id number] ADM DATE: 02/25/19 AGE: 63 : 57 SEX: M ROOM/BED: D.2217 AUTHOR: SURI EDGE PHYSICIAN: REFERRING PHYSICIAN: CLAUDIA JONES MD DATE OF SERVICE: 02/28/19 Discharge Plan Patient Name: FLORENTINO BARRIENTOS [place] [facility] : 1955 Planned Disposition: Home with Home Health Anticipated Discharge Date: Discharge Date: Expected LOS: Initial Reviewer: [email or web address] Initial Review Date: 02/25/2019 Generated: 02/28/19 1:31 pm DCPIA - Discharge Planning Initial Assessment Updated by [email or web address]: Donna Lovett on 02/28/19 12:29 pm * Is the patient Alert and Oriented? Yes * How many steps to enter\exit or inside your home? RAMP * PCP SHAI * Pharmacy [facility] * Preadmission Environment Home with Family * ADLs Independent * Equipment Bedside Commode Elevated [place] Seat Grab Bars Power Chair or Electric Scooter Rolling Walker Shower Chair Walker Wheelchair * Other Equipment PROSTHETIC * List name and contact numbers for known caregivers / representatives who currently or will assist patient after discharge: GEM (ILIANA) [phone] * Verbal permission to speak to the caregivers and representatives has been obtained from the patient. N/A * Community resources currently utilized None * Additional services required to return to the preadmission environment? Yes * Can the patient safely return to the preadmission environment? Yes * Has this patient been hospitalized within the prior 30 days at any hospital? No Patient Name: FLORENTINO BARRIENTOS Page [phone] at 1231 All edits/amendments must be made on the electronic document DICTATION DATE: 02/28/19 1231 WASTE PICKER: GERALD 02/28/19 1231 RPT#: [id number] DC DATE: STATUS: ADM IN [facility] [address] [place] [address] END OF REPORT
--- NOTE | 2019-02-28 12:45 | MORECARE ---
CASE MANAGEMENT DISCHARGE SUMMARY PATIENT: FLORENTINO BARRIENTOS UNIT: [id number] ADM DATE: 02/25/19 AGE: 63 : 57 SEX: M ROOM/BED: D.2217 AUTHOR: KELYDOC PHYSICIAN: REFERRING PHYSICIAN: CLAUDIA JONES MD DATE OF SERVICE: 02/28/19 Discharge Plan Patient Name: FLORENTINO BARRIENTOS Facility: [facility]:[place] : 1955 Planned Disposition: Home with Home Health Anticipated Discharge Date: Discharge Date: Expected LOS: Initial Reviewer: [email or web address] Initial Review Date: 02/25/2019 Generated: 02/28/19 1:45 pm Comments DCP- Discharge Planning Updated by [email or web address]: Donna Lovett on 02/28/19 11:[address] Patient Name: FLORENTINO BARRIENTOS Admission Status: Elective Accout number: [id number] Admission Date: 02-25-2019 : 1955 Admission Diagnosis:TYPE 2 DIABETES MELLITUS WITH OTHER SPECIFIED COMPLICAT Attending: CLAUDIA JONES Current LOS: 3 Anticipated DC Date: Planned Disposition: Home with Home Health Primary Insurance: MEDICARE A & B Discharge Planning Comments: CM met with patient to complete initial dc planning assessment. CM educated patient on the CM role and verbal consent given by patient to complete assessment. Patient lives at home with his where he is independent with his care. At discharge patient plans to return home and feels this is a safe discharge. CM discussed availability of home health, rehab services, and medical equipment. She has a ramp, shower chair, power chair, ramp, prosthetic leg, BSC. He will get [facility] home [facility]. I have called [facility] and they will accept patient. IMM served and explained. MOR signed and placed in chart. Patient denied known discharge needs at this time. CM will continue to follow and will assist as needed with dc plans/needs. Boiler House Supervisor: Donna Lovett DCPIA - Discharge Planning Initial Assessment Updated by [email or web address]: Donna Lovett on 02/28/19 12:29 pm * Is the patient Alert and Oriented? Yes * How many steps to enter\exit or inside your home? RAMP * PCP SHAI * Pharmacy [facility] * Preadmission Environment Home with Family * ADLs Independent * Equipment Bedside Commode Elevated [place] Seat Grab Bars Power Chair or Electric Scooter Rolling Walker Shower Chair Walker Wheelchair * Other Equipment PROSTHETIC * List name and contact numbers for known caregivers / representatives who currently or will assist patient after discharge: GEM MICHAEL) [phone] * Verbal permission to speak to the caregivers and representatives has been obtained from the patient. N/A * Community resources currently utilized None * Additional services required to return to the preadmission environment? Yes * Can the patient safely return to the preadmission environment? Yes * Has this patient been hospitalized within the prior 30 days at any hospital? No External Providers External Provider: [facility] Next Contact Date: Service Request Date: Service Type: Resolution: Reviewer: Comments: Last DP export: 02/28/19 11:31 a Patient Name: FLORENTINO BARRIENTOS Page [phone] at 1245 All edits/amendments must be made on the electronic document DICTATION DATE: 02/28/19 1244 FAMILY SERVICES SPECIALIST: GERALD 02/28/19 1244 RPT#: [id number] DC DATE: STATUS: ADM IN [facility] [address] [place] [address] END OF REPORT
--- NOTE | 2019-02-28 13:53 | NUR ---
PT OT HAVE LIMB PROTECTOR PRIOR TO DC PT WAS TIRED OF WAITING FOR SOMEONE AT [facility] TO BRING AND WANTED TO LEAVE, CALLED [facility] AND WAS ADVISED [facility] IS STILL WORKING ON IT AND TO DC PT AND THEY WILL PERSONALLY DELIVER TO PT HOME. PT DC HOME
--- NOTE | 2019-03-04 13:54 | MORECARE ---
CASE MANAGEMENT DISCHARGE SUMMARY PATIENT: FLORENTINO BARRIENTOS UNIT: [id number] ADM DATE: 02/25/19 AGE: 63 : 57 SEX: M ROOM/BED: D.2217 AUTHOR: SURI EDGE PHYSICIAN: REFERRING PHYSICIAN: CLAUDIA JONES MD DATE OF SERVICE: 03/04/19 Discharge Plan Patient Name: FLORENTINO BARRIENTOS Facility: [facility]:[place] : 1955 Planned Disposition: Home with Home Health Anticipated Discharge Date: Discharge Date: 02/28/2019 Expected LOS: Initial Reviewer: [email or web address] Initial Review Date: 02/25/2019 Generated: 03/04/19 2:53 pm Comments DCP- Discharge Planning Updated by [email or web address]: Donna Lovett on 02/28/19 11:[address] Patient Name: FLORENTINO BARRIENTOS Admission Status: Elective Accout number: [id number] Admission Date: 02-25-2019 : 1955 Admission Diagnosis:TYPE 2 DIABETES MELLITUS WITH OTHER SPECIFIED COMPLICAT Attending: CLAUDIA JONES Current LOS: 3 Anticipated DC Date: Planned Disposition: Home with Home Health Primary Insurance: MEDICARE A & B Discharge Planning Comments: CM met with patient to complete initial dc planning assessment. CM educated patient on the CM role and verbal consent given by patient to complete assessment. Patient lives at home with his where he is independent with his care. At discharge patient plans to return home and feels this is a safe discharge. CM discussed availability of home health, rehab services, and medical equipment. She has a ramp, shower chair, power chair, ramp, prosthetic leg, BSC. He will get [facility] home [facility]. I have called [facility] and they will accept patient. IMM served and explained. MOR signed and placed in chart. Patient denied known discharge needs at this time. CM will continue to follow and will assist as needed with dc plans/needs. Head Counselor: Donna Lovett DCPIA - Discharge Planning Initial Assessment Updated by [email or web address]: Donna Lovett on 02/28/19 12:29 pm * Is the patient Alert and Oriented? Yes * How many steps to enter\exit or inside your home? RAMP * PCP SHAI * Pharmacy [facility] [address] * Preadmission Environment Home with Family * ADLs Independent * Equipment Bedside Commode Elevated [place] Seat Grab Bars Power Chair or Electric Scooter Rolling Walker Shower Chair Walker Wheelchair * Other Equipment PROSTHETIC * List name and contact numbers for known caregivers / representatives who currently or will assist patient after discharge: GEM MICHAEL) [phone] * Verbal permission to speak to the caregivers and representatives has been obtained from the patient. N/A * Community resources currently utilized None * Additional services required to return to the preadmission environment? Yes * Can the patient safely return to the preadmission environment? Yes * Has this patient been hospitalized within the prior 30 days at any hospital? No Coverage Notice Reviewer: [email or web address] Lovett Notice Issued Date-Time: 02/28/2019 9:30 Notice Type: IM Discharge Notice Notice Delivered To: Patient Relationship to Patient: Program Director/Music Director Name: Delivery Method: HAND - Hand Delivered Alondra Days: Prior Verbal Notification: Recipient Understood Notice: Yes Recipient Signature: Yes Med Rec Note Co-signed by Attending: Coverage Notice Comment: Reviewer: [email or web address] Lovett Notice Issued Date-Time: 02/28/2019 9:30 Notice Type: Patient Choice Letter Notice Delivered To: Patient Relationship to Patient: Program Director/Music Director Name: Delivery Method: HAND - Hand Delivered Alondra Days: Prior Verbal Notification: Recipient Understood Notice: Yes Recipient Signature: Yes Med Rec Note Co-signed by Attending: Coverage Notice Comment: MOR WITH ELITE Last DP export: 02/28/19 11:45 a Patient Name: FLORENTINO BARRIENTOS Page [phone] at 1354 All edits/amendments must be made on the electronic document DICTATION DATE: 03/04/19 1353 TRANSPLANTER: GERALD 03/04/19 1353 RPT#: [id number] DC DATE:02/28/19 STATUS: DIS IN [facility] [address] [place] [address] END OF REPORT
== END 2019-02-28 14:53 | disposition home health service (06) | DRG 41 ==
LOC: D.MS 02-25 09:20 → D.SDCHOLD 02-25 09:20 → D.MS 02-25 14:33 → D.SDCHOLD 02-25 14:35 → D.MS 02-28 14:53
PROVIDERS: Anesthesiology; ADMIT Orthopaedic Surgery; ATTEND Orthopaedic Surgery
PROC: 0Y6J0Z2 Detachment at Left Lower Leg, Mid, Open Approach (ICD-10-PCS; principal; 2019-02-25 11:45)
DX: E11.610 Type 2 diabetes mellitus with diabetic neuropathic arthropathy (principal); M86.672 Other chronic osteomyelitis, left ankle and foot; L03.116 Cellulitis of left lower limb; E11.69 Type 2 diabetes mellitus with other specified complication; E11.51 Type 2 diabetes mellitus with diabetic peripheral angiopathy without gangrene; I10 Essential (primary) hypertension; G25.81 Restless legs syndrome; K21.9 Gastro-esophageal reflux disease without esophagitis; N40.0 Benign prostatic hyperplasia without lower urinary tract symptoms; I25.10 Atherosclerotic heart disease of native coronary artery without angina pectoris